=== PATIENT | female | born 1935 | race Caucasian/White ===

== ENCOUNTER 2017-04-21 11:25 | Inpatient (IN) | payer OTHER, MEDICARE ==
--- NOTE | 2017-04-21 11:45 | PDOC ---
History of Present Illness - General Chief Complaint: CVA/TIA Stated Complaint: EPISODE OF SLURRED SPEECH Time Seen by Provider: 04/21/17 11:35 - History of Present Illness Initial Comments: 04/21/17 11:40 Ms. Orr is a 81 yo female with a PMH of right femoral pseudoaneurysm w/ angioplasty/stent, afib, bradycardia, HTN who presents for a 1 hour history of slurred speech and Left facial droop. Erasmo: Ciprofloxacin, erythromycin Past History - Past Medical History Allergies/Adverse Reactions: Allergies Allergy/AdvReac Type Severity Reaction Status Date / Time ciprofloxacin [From Cipro] Allergy Rash Verified 02/21/16 14:58 ciprofloxacin HCl Allergy Rash Verified 02/21/16 14:58 [From Cipro] erythromycin base Allergy Rash Verified 02/21/16 14:58 Home Medications: Ambulatory Orders Enalapril Maleate [Vasotec -] 5 mg PO BID #0 tablet 03/03/16 Levothyroxine [Synthroid -] 25 mcg PO DAILY@0700 #0 tablet 03/03/16 Ascorbate Calcium [Vitamin C] 1 tab PO BID 06/19/16 Spironolactone 25 mg PO DAILY 06/19/16 Zinc Sulfate [Zinc-220] 1 cap PO DAILY 06/19/16 Ascorbic Acid [Vitamin C -] 1,000 mg PO DAILY 04/21/17 Clopidogrel Bisulfate [Clopidogrel] 75 mg PO DAILY 04/21/17 Rosuvastatin [Crestor -] 5 mg PO HS 04/21/17 Sodium Bicarbonate - 04/21/17 Anemia: No Asthma: No Cancer: Yes (Basal Cell Face) Cardiac Disorders: Yes (BRADYCARDIA) CVA: No COPD: No CHF: No Dementia: No Diabetes: No GI Disorders: No Disorders: No HTN: Yes Hypercholesterolemia: Yes Liver Disease: No Seizures: No Thyroid Disease: No - Surgical History Abdominal Surgery: No Appendectomy: No Cardiac Surgery: No Cholecystectomy: No Lung Surgery: No Neurologic Surgery: No Orthopedic Surgery: Yes (ORIF Left Arm) - Psycho/Social/Smoking Cessation Hx Suicidal Ideation: No Smoking History: Never smoked Have you smoked in the past 12 months: No Hx Alcohol Use: No Drug/Substance Use Hx: No Substance Use Type: None Hx Substance Use Treatment: No Review of Systems - Review of Systems Comments:: 04/21/17 11:45 GENERAL/CONSTITUTIONAL: No fever or chills. No weakness. HEAD, EYES, EARS, NOSE AND THROAT: No change in vision. No ear pain or discharge. No sore throat. CARDIOVASCULAR: No chest pain or shortness of breath RESPIRATORY: No cough, wheezing, or hemoptysis. GASTROINTESTINAL: No nausea, vomiting, diarrhea or constipation. GENITOURINARY: No dysuria, frequency, or change in urination. MUSCULOSKELETAL: No joint or muscle swelling or pain. No neck or back pain. SKIN: No rash NEUROLOGIC: +Reports she had left sided facial drooping that was worse initially as well as slurring of words. Reports both have gotten better but not yet fully improved. No headache, vertigo, loss of consciousness, or change in strength/sensation. ENDOCRINE: No increased thirst. No abnormal weight change HEMATOLOGIC/LYMPHATIC: No anemia, easy bleeding, or history of blood clots. ALLERGIC/IMMUNOLOGIC: No hives or skin allergy. 08/ *Physical Exam - Physical Exam Comments: 04/21/17 11:45 GENERAL: Awake, alert, and fully oriented, in no acute distress HEAD: No signs of trauma, normocephalic, atraumatic EYES: PERRLA, EOMI, sclera anicteric, conjunctiva clear ENT: Auricles normal inspection, hearing grossly normal, nares patent, oropharynx clear without exudates. Moist mucosa NECK: Normal ROM, supple, no lymphadenopathy, JVD, or masses LUNGS: No distress, speaks full sentences, clear to auscultation bilaterally HEART: Regular rate and rhythm, normal S1 and S2, no murmurs, rubs or gallops, peripheral pulses normal and equal bilaterally. ABDOMEN: Soft, nontender, normoactive bowel sounds. No guarding, no rebound. No masses EXTREMITIES: Normal inspection, Normal range of motion, no edema. No clubbing or cyanosis. NEUROLOGICAL: +NIHSS=2 for minor Left facial droop and slight slurring of nerves. Cranial nerves II through XII grossly intact. Normal gait, no focal sensorimotor deficits SKIN: Warm, Dry, normal turgor, no rashes or lesions noted. ED Treatment Course - LABORATORY CBC & Chemistry Diagram: 04/21/17 12:30 04/21/17 12:30 Medical Decision Making - Medical Decision Making 04/21/17 13:28 Patient presents with acute slurred speech and facial drooping that she says has already started improving. CT scan negative for bleed. EKG showed alternating bradycardia with atrial flutter. Labs unconcerning, after speaking with PCP (Delmis Peters) will admit to tele for TIA with neurology and cardiology following. 04/21/17 13:[address] Torres (neurology) to consult. 04/21/17 14:[address] Torres, he will f/u with patient in hospital. *DC/Admit/Observation/Transfer Diagnosis at time of Disposition: TIA (transient ischemic attack) Qualifiers: Transient cerebral ischemia type: unspecified Qualified Code(s): G45.9 - Transient cerebral ischemic attack, unspecified - Discharge Dispostion Condition at time of disposition: Fair - Attestations Physician Attestion: 04/21/17 14:41 I, Dr. Isauro Silva, attest that this document has been prepared under my direction and personally reviewed by me in its entirety. I further attest, that it accurately reflects all work, treatment, procedures and medical decision -making performed by me.
--- NOTE | 2017-04-21 11:58 | PDOC ---
Attending Attestation - Resident Resident Name: Isauro Silva - ED Attending Attestation I have performed the following: I have examined & evaluated the patient, The case was reviewed & discussed with the resident, I agree w/resident's findings & plan, Exceptions are as noted - HPI HPI: 04/21/17 11:56 Agree with the resident's HPI as documented in the electronic medical record. - Physicial Exam PE: 04/21/17 11:56 Agree with the resident's physical examination as documented in the electronic medical record. - Medical Decision Making 04/21/17 11:56 81-year-old female with history of hypertension, atrial fibrillation, peripheral artery disease, diabetes who presents the emergency department with one hour history of slurred speech and left-sided facial droop that his been resolving. Fingerstick is 130 in the emergency department and an NIHSS is 2. Differential diagnosis includes but is not limited to: TIA, CVA, electrolyte abnormality, toxic/metabolic derangement, dehydration. Plan: 1. CT head 2. EKG 3. Labs 4. Chest x-ray 5. Urine analysis 6. Will admit for TIAs/stroke workup 7. Neurology consult 8. Observe and reevaluate Addendum: EKG shows atrial flutter with a variable block; she appears to be rate controlled.
[2017-04-21 12:47] LABS: MCH 30.6 pg (25.7-33.7); MCHC 35.2 g/dl (32.0-36.0)
[2017-04-21 12:50] LABS: MEAN CELL VOLUME 86.9 fl (80-96); MEAN PLT VOLUME 8.7 fl (7.5-11.1); PLATELET COUNT 278 K/MM3 (134-434); RDW 13.2 % (11.6-15.6); WHITE BLOOD COUNT 8.4 K/mm3 (4.0-10.8)
[2017-04-21 13:06] LABS: ACTIVATED PTT 26.5 SECONDS (24.0-38.9)
[2017-04-21 13:10] LABS: ALBUMIN 4.3 g/dl (3.5-5.0); ALK PHOS 54 U/L (32-92); ANION GAP 7 (8-16); BILIRUBIN,TOTAL 0.5 mg/dl (0.2-1.0); CALCIUM 10.1 mg/dl (8.4-10.2); CO2 22 mmol/L (22-28); CPK 76 IU/L (26-192); CREATININE 1.6 mg/dl (0.6-1.3); GLUCOSE,RANDOM 98 mg/dl (74-106); MAGNESIUM 1.9 mg/dL (1.8-2.4); PHOSPHOROUS 4.2 mg/dl (2.5-4.6); SGOT/AST 22 U/L (10-42); SGPT/ALT 24 U/L (10-40)
[2017-04-21 13:11] LABS: INR 1.01 (0.82-1.09); PROTHROMBIN TIME (PATIENT) 11.3 SEC (10.2-13.0)
[2017-04-21] MEDS ORDERED: SODIUM POLYSTYRENE SULFONATE 15 GM/60 ML BOTTLE PO ONE (13:20)
[2017-04-21 13:23] LABS: TROPONIN I (DFP) < 0.03 ng/ml (0.03-0.50)
[2017-04-21] MEDS ORDERED: SODIUM POLYSTYRENE SULFONATE 15 GM/60 ML BOTTLE ONE (13:29)
[2017-04-21 16:00] VITALS: BMI 26.4
[2017-04-21] MEDS: amLODIPine BESYLATE 5 MG TABLET (FP) PO SCH (16:53)
[2017-04-21] MEDS: ENALAPRIL MALEATE 10 MG TABLET (FP) PO SCH (16:53)
[2017-04-21] MEDS ORDERED: ASPIRIN 81 MG CHEWABLE TABLETS ONE (16:56)
[2017-04-21] MEDS ORDERED: HEPARIN INFUSION - 500 ML IVPB ONE (17:15)
[2017-04-21] MEDS ORDERED: HEPARIN NA (PORCINE) 5,000 UNITS/ML 1ML VIAL ONE (17:19)
[2017-04-21] MEDS ORDERED: HEPARIN NA (PORCINE) 5,000 UNITS/ML 1ML VIAL IVPUSH PRN ×2 (17:46)
[2017-04-21] MEDS ORDERED: HEPARIN NA (PORCINE) 5,000 UNITS/ML 1ML VIAL IVPUSH ONE (17:46)
--- NOTE | 2017-04-21 17:50 | PN ---
Progress Note (short form) - Note Progress Note: Chief Complaint: Events noted, notes reviewed. Slurred speech with left facial drop, with paroxysmal atrial fibrillation, denies any chest pain or dyspnea History of Present Illness: Seen and examined in ER. Full consult dictated - Current Medication List Current Medications Amlodipine Besylate (Norvasc -) 5 mg PO DAILY [facility] Last Admin: 04/21/17 16:53 Dose: 5 mg Ascorbic Acid (Vitamin C -) 500 mg PO BID [facility] Aspirin (Ecotrin -) 81 mg PO DAILY [facility] Clopidogrel Bisulfate (Plavix -) 75 mg PO DAILY [facility] Enalapril Maleate (Vasotec -) 10 mg PO BID [facility] Last Admin: 04/21/17 16:53 Dose: 10 mg Levothyroxine Sodium (Synthroid -) 50 mcg PO DAILY@0700 [facility] Rosuvastatin Calcium (Crestor -) 10 mg PO HS [facility] Sodium Bicarbonate (Sodium Bicarbonate -) 650 mg PO BID [facility] Spironolactone (Aldactone -) 25 mg PO DAILY [facility] Zinc Sulfate (Orazinc -) 220 mg PO DAILY [facility] Home Medications Medication Instructions Recorded Ascorbate Calcium [Vitamin C] 1 tab PO BID 06/19/16 Spironolactone 25 mg PO DAILY 06/19/16 Clopidogrel Bisulfate [Clopidogrel] 75 mg PO DAILY 04/21/17 Enalapril Maleate [Vasotec -] 5 mg PO DAILY 04/21/17 Levothyroxine [Synthroid -] 0.05 mg PO DAILY@0700 04/21/17 Rosuvastatin [Crestor -] 5 mg PO HS 04/21/17 Sodium Bicarbonate - 650 mg PO BID 04/21/17 Zinc 50 mg PO DAILY 04/21/17 Review of Systems Cardiovascular: As noted above Respiratory: denies: Cough or Sputum Production Gastrointestinal: denies: Nausea, Vomiting, Constipation or Abdominal Discomfort Musculoskeletal: No Symptoms Reported Endocrine: No Symptoms Reported - Objective Vital Signs: Last Vital Signs Temp Pulse Resp BP Pulse Ox 97.7 F 56 L 16 185/89 100 04/21/17 14:40 04/21/17 17:10 04/21/17 17:10 04/21/17 17:10 04/21/17 14:40 Intake & Output 04/18/17 04/19/17 04/20/17 04/21/17 23:59 23:59 23:59 23:59 Weight 144 lb 3 oz Neck: Supple Positive JVD No Bruit Cardiovascular: S1 S2 Regualr Rate Rhythm No Murmurs Appreciated Respiratory: Clear to A&P Bilaterally Gastrointestinal: Soft Benign Normal Bowel Sounds Ext: No Edema Labs: CBC, BMP 04/21/17 12:30 04/21/17 12:30 Troponin, BNP 04/21/17 12:30 Troponin I < 0.03 L Hepatic Panel Total Bilirubin 0.5 mg/dl (0.2-1.0) 04/21/17 12:30 AST 22 U/L (10-42) 04/21/17 12:30 ALT 24 U/L (10-40) D 04/21/17 12:30 Alkaline Phosphatase 54 U/L (32-92) 04/21/17 12:30 Albumin 4.3 g/dl (3.5-5.0) 04/21/17 12:30 Assessment/Plan ASSESSMENT: 1. Clinical presentation is consistent with CVA/TIA with residual facial drop 2. Paroxysmal atrial Flutter/fibrillation currently in sinus rhythm, [id number] score of 7 on no A/C, sinus bradycardia, sinus node dysfunction to be excluded 3. 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 Chronic diastolic LV dysfunction with class 0-I NYHA classification LV failure 5. HTN, hypertensive cardiovascular disease not at goal 6. Hypercholesterolemia 7. CKD with Hyperkalemia PLAN: 1. Ideally should be on B-Blockers limiting factor is Bradycardia 2. Continue Vasotec with caution considering the above noted CKD with Hyperkalemia 3. Addition of Norvasc 4. Continue Crestor 5. Continue Plavix for now and fpc A/C is recommended with Coumadin or NOAC's considering the above noted [id number] score of 7, initiate Heparin 6. D/C Aldactone related to the above noted Hyperkalemia 7. Holter monitor 8. Carotid Doppler study 9. Brain MRI/MRA 10. Echocardiography for evaluation of LV size and function, LA size and valvular function 11. Recommend transfer to Telemetry at [facility] for further observation and management Condition Nenita Manzano M.D.
[2017-04-21] MEDS: ASPIRIN COATED 81 MG TABLET.EC PO SCH (18:15)
[2017-04-21] MEDS: HEPARIN INFUSION - 500 ML IVPB SCH (18:15)
[2017-04-21] MEDS: ROSUVASTATIN CA 10 MG TABLET (FP) PO SCH (21:40)
[2017-04-21] MEDS: SODIUM BICARBONATE 650 MG TABLET PO SCH (21:40)
[2017-04-21] MEDS: ASCORBIC ACID 500 MG TABLET (FP) PO SCH (21:48)
[2017-04-22] MEDS: HEPARIN INFUSION - 500 ML IVPB SCH ×2 (02:35→18:22)
[2017-04-22] MEDS: LEVOTHYROXINE NA 50 MCG TABLET (FP) PO SCH (06:16)
--- NOTE | 2017-04-22 07:32 | PN ---
Progress Note (short form) - Note Progress Note: Chief Complaint: Events noted, notes reviewed. Left facial drop persists but improved, currently in sinus rhythm, sinus bradycardia, paroxysmal atrial fibrillation/flutter, denies any chest pain or dyspnea History of Present Illness: Seen and examined in ER. Events noted, notes reviewed. Left facial drop persists but improved, currently in sinus rhythm, sinus bradycardia, paroxysmal atrial fibrillation/flutter, denies any chest pain or dyspnea Patient prefers initiation of Coumadin as opposed to NOAC's, risk, benefits and alternatives were reviewed - Current Medication List Current Medications Amlodipine Besylate (Norvasc -) 5 mg PO DAILY [facility] Last Admin: 04/21/17 16:53 Dose: 5 mg Ascorbic Acid (Vitamin C -) 500 mg PO BID [facility] Last Admin: 04/21/17 21:48 Dose: Not Given Aspirin (Ecotrin -) 81 mg PO DAILY [facility] Last Admin: 04/21/17 18:15 Dose: 81 mg Clopidogrel Bisulfate (Plavix -) 75 mg PO DAILY [facility] Enalapril Maleate (Vasotec -) 10 mg PO BID [facility] Last Admin: 04/21/17 16:53 Dose: 10 mg Heparin Sodium (Porcine) (Heparin -) 5,000 unit IVPUSH PRN PRN Heparin Sodium (Porcine) (Heparin -) 1,000 unit IVPUSH PRN PRN Heparin Sodium/Dextrose (Heparin Infusion -) 500 mls @ 16 mls/hr IVPB TITR [facility] ; 800 UNITS/HR PRN Reason: Protocol Last Admin: 04/22/17 02:35 Dose: 13 mls/hr Levothyroxine Sodium (Synthroid -) 50 mcg PO DAILY@0700 [facility] Last Admin: 04/22/17 06:16 Dose: 50 mcg Rosuvastatin Calcium (Crestor -) 10 mg PO HS [facility] Last Admin: 04/21/17 21:40 Dose: 10 mg Sodium Bicarbonate (Sodium Bicarbonate -) 650 mg PO BID [facility] Last Admin: 04/21/17 21:40 Dose: 650 mg Zinc Sulfate (Orazinc -) 220 mg PO DAILY [facility] Review of Systems Cardiovascular: As noted above Respiratory: denies: Cough or Sputum Production Gastrointestinal: denies: Nausea, Vomiting, Constipation or Abdominal Discomfort Musculoskeletal: No Symptoms Reported Endocrine: No Symptoms Reported - Objective Vital Signs: Last Vital Signs Temp Pulse Resp BP Pulse Ox 98.1 F 48 L 20 150/55 96 04/22/17 06:00 04/22/17 06:00 04/22/17 06:00 04/22/17 06:00 04/21/17 20:00 Intake & Output 04/19/17 04/20/17 04/21/17 04/22/17 23:59 23:59 23:59 23:59 Intake Total 480 83 Output Total 200 Balance 280 83 Weight 144 lb 3 oz Neck: Supple Negative JVD No Bruit Cardiovascular: S1 S2 Regular Rate Rhythm No Murmurs Appreciated Respiratory: Clear to A&P Bilaterally Gastrointestinal: Soft Benign Normal Bowel Sounds Ext: No Edema Labs: Blood test from this AM pending Assessment/Plan ASSESSMENT: 1. Clinical presentation is consistent with CVA/TIA with residual facial drop, improving 2. Paroxysmal atrial Flutter/fibrillation currently in sinus rhythm, [id number] score of 7 on Heparin, sinus bradycardia, sinus node dysfunction to be excluded 3. 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 Chronic diastolic LV dysfunction with class 0-I NYHA classification LV failure 5. HTN, hypertensive cardiovascular disease 6. Hypercholesterolemia 7. CKD with Hyperkalemia, resolved Hyperkalemia PLAN: 1. As outlined ideally should be on B-Blockers limiting factor is Bradycardia 2. Continue Vasotec with caution considering the above noted CKD with Hyperkalemia 3. Continue Norvasc 4. Continue Crestor 5. Continue Plavix for now and electrician sound A/C is recommended with Coumadin ( patient preference) considering the above noted [id number] score of 7, continue Heparin 6. Holter monitor 7. Carotid Doppler study 8. Brain MRI/MRA 9. Echocardiography for evaluation of LV size and function, LA size and valvular function Jam Manzano M.D.
[2017-04-22 09:14] LABS: ANION GAP 10 (8-16); CALCIUM 8.9 mg/dL (8.5-10.1); CO2 23 mmol/L (21-32); GLUCOSE,RANDOM 93 mg/dL (74-106)
[2017-04-22 09:15] LABS: CREATININE 1.8 mg/dL (0.55-1.02)
[2017-04-22 09:19] LABS: BASOPHIL 0.6 % (0-2.0); EOSINOPHIL 3.1 % (0-4.5); MCH 30.7 pg (25.7-33.7); MCHC 33.2 g/dl (32.0-36.0); MEAN CELL VOLUME 92.4 fl (80-96); MEAN PLT VOLUME 9.8 fl (7.5-11.1); NEUTROPHILS 49.4 % (42.8-82.8); PLATELET COUNT 224 K/MM3 (134-434); RDW 13.6 % (11.6-15.6); WHITE BLOOD COUNT 8.6 K/mm3 (4.0-10.0)
[2017-04-22] MEDS ORDERED: CLOPIDOGREL BISULFATE 75 MG TABLET (FP) PO SCH (10:00)
[2017-04-22] MEDS ORDERED: SPIRONOLACTONE 25 MG TABLET (FP) PO SCH (10:00)
[2017-04-22] MEDS ORDERED: ASPIRIN COATED 81 MG TABLET.EC PO SCH (10:00)
[2017-04-22] MEDS ORDERED: PT OWN MED DRAWER 7, Y5N ONE ×2 (10:38→18:55)
[2017-04-22] MEDS: ZINC SULFATE 220 MG CAPSULE (FP) PO SCH (11:01)
[2017-04-22] MEDS: amLODIPine BESYLATE 5 MG TABLET (FP) PO SCH (11:02)
[2017-04-22] MEDS: SODIUM BICARBONATE 650 MG TABLET PO SCH ×2 (11:02→21:19)
[2017-04-22] MEDS: ASPIRIN COATED 81 MG TABLET.EC PO SCH (11:02)
[2017-04-22] MEDS: ASCORBIC ACID 500 MG TABLET (FP) PO SCH ×2 (11:03→21:19)
[2017-04-22] MEDS: ENALAPRIL MALEATE 10 MG TABLET (FP) PO SCH (11:03)
--- NOTE | 2017-04-22 12:11 | CONSULT ---
Admitting History and Physical - Primary Care Physician PCP: Perez Prakash - Admission History of Present Illness: Slurred speech with left facial drop, with paroxysmal atrial fibrillation. 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)) - Smoking History Smoking history: Never smoked Have you smoked in the past 12 months: No - Alcohol/Substance Use Hx Alcohol Use: No History - Admission Reason For Visit: TIA - Diagnostics X-ray: Report Reviewed CT Scan: Report Reviewed - General Mental Status: Alert and Oriented, Awake and Alert, Able to Follow Commands Attention: Intact Ability to Follow Directions: Excellent Head/Neck Control: WFL - Hearing Hearing: Normal Hearing Aide: No With Patient: No Speech Evaluation - Communication Primary Language: GRENADIAN Communication: Yes: Dysarthria Oral Expression Ability: Yes: Mild Impairment - Speech Production Able to Make Needs Known: Yes: WNL Intelligibility: Yes: Mildly Impaired - Speech Characteristics Voice Loudness: Normal Voice Pitch: Yes: Normal Voice Phonatory-based Quality: Yes: Normal Speech Clarity: < 75% Nasal Resonance: Normal Articulation: Yes: Imprecise Rate of Speech: Intact - Language/Auditory Comprehension Follows: Yes: 2 Stage Simple Commands Observation: Able to respond to yes/no queries: Yes, Yes/No Confusion: No, Comprehends Conversational Speech: Yes - Language/Verbal Expression Able to Respond to Simple Queries: Yes: WNL Able to Communicate Wants and Needs: Yes: WNL Functional Communication Status: Yes: WNL - Memory/Perception termination clerk Memory: Yes: WNL Short Term Memory: Yes: WNL - Swallow Evaluation/Bedside Assessment Current Nutritional Intake: Regular, Thin Liquids Oral Secretions: Yes: WFL Dentition: Yes: Adequate Facial Symmetry at Rest: Facial Droop Left Facial Symmetry on Retraction: Facial Droop Left Jaw Position: Closed at Rest Pucker Lips: Droops Left Lingual Movement: Normal, Symmetric Lingual Speed of Movement: Normal Lingual Movement Strgth Against Opposition: Normal Lingual Movement Characteristics: Normal Velopharyngeal Movement: Normal Laryngeal Elevation: WFL Laryngeal Movement: Able to Palpate Rate of Intake: WFL Bolus Size: WFL Labial Seal: Impaired Left Chewing: WFL Oral Prep Time: WFL A-P Transit: WFL Pocketing: None Timing of Swallow: WFL Coughing/Throat Clear: No Change in Voice: No Recommendations - Speech Evaluation, Impression/Plan Impression: 81 yo pt with clinical presentation is consistent with CVA/TIA with residual facial droop. Swallowing/Cognition/language function intact. Tongue symmetric. Mild to moderate Left facial weakness at rest with mildly reduced retraction/pursing. Recommended Therapies: Other (Educated pt on Oral-motor/neuromuscular facilitation techniques and hand outs provided.) - Dysphagia Impressions/Plan Swallowing Skills: WFL Dysphagia Impressions: No Impairment *Silent aspiration: cannot be R/O at bedside Recommendations: Other (Self practice of Oral-motor/neuromuscular facilitation techniques. If facial assymetry persists, out pt tx.) - Recommendations Diet Consistency: Regular Medication Administration: Whole with water Liquids: Thin Liquids
--- NOTE | 2017-04-22 13:17 | HP ---
Admitting History and Physical - Primary Care Physician PCP: Delmis Lopez - Admission History of Present Illness: Ms. Orr is a 81 yo female with a PMH of right femoral pseudoaneurysm w/ angioplasty/stent, afib, bradycardia, HTN who presented for a 1 hour history of slurred speech and Left facial droop. clinical exam consistent with cva-- started on heparin and pt [facility]. case was discussed with er physician. pt was not given tpa as she had improved pt seen/ examined today in tele chart reviewed feels better denies cp/ sob/ abd pain. 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)) - Smoking History Smoking history: Never smoked Have you smoked in the past 12 months: No - Alcohol/Substance Use Hx Alcohol Use: No Home Medications - Allergies Allergies/Adverse Reactions: Allergies Allergy/AdvReac Type Severity Reaction Status Date / Time ciprofloxacin [From Cipro] Allergy Rash Verified 02/21/16 14:58 ciprofloxacin HCl Allergy Rash Verified 02/21/16 14:58 [From Cipro] erythromycin base Allergy Rash Verified 02/21/16 14:58 - Home Medications Home Medications: Ambulatory Orders Ascorbate Calcium [Vitamin C] 1 tab PO BID 06/19/16 Spironolactone 25 mg PO DAILY 06/19/16 Clopidogrel Bisulfate [Clopidogrel] 75 mg PO DAILY 04/21/17 Enalapril Maleate [Vasotec -] 5 mg PO DAILY 04/21/17 Levothyroxine [Synthroid -] 0.05 mg PO DAILY@0700 04/21/17 Rosuvastatin [Crestor -] 5 mg PO HS 04/21/17 Sodium Bicarbonate - 650 mg PO BID 04/21/17 Zinc 50 mg PO DAILY 04/21/17 Family Disease History - Family Disease History Family Disease History: Other: Daughter (Glucocorticoid remediable Hyperaldosteronism) Review of Systems Unable to obtain ROS, reason: see [place] Physical Examination Vital Signs: Vital Signs Temperature 98.4 F 04/22/17 13:11 Pulse Rate 62 04/22/17 13:11 Respiratory Rate 20 04/22/17 13:11 Blood Pressure 159/68 04/22/17 13:11 O2 Sat by Pulse Oximetry (%) 96 04/21/17 20:00 Constitutional: Yes: No Distress, Calm Eyes: Yes: Conjunctiva Clear, PERRL HENT: Yes: WNL Neck: Yes: Supple, Trachea Midline Cardiovascular: Yes: Pulse Irregular Respiratory: Yes: CTA Bilaterally Gastrointestinal: Yes: Normal Bowel Sounds, Soft Edema: No Neurological: Yes: Alert, Facial Droop, Other (slurred speech) Psychiatric: Yes: Alert Labs: CBC, BMP 04/22/17 06:00 04/22/17 06:00 Imaging - Results Chest X-ray: Report Reviewed Cat Scan: Report Reviewed Other: Other (echo - reviewed--) Problem List - Problems (1) Acute CVA (cerebrovascular accident) Code(s): I63.9 - CEREBRAL INFARCTION, UNSPECIFIED (2) Atrial fibrillation Code(s): I48.91 - UNSPECIFIED ATRIAL FIBRILLATION Qualifiers: Atrial fibrillation type: paroxysmal Qualified Code(s): I48.0 - Paroxysmal atrial fibrillation (3) Bradycardia Code(s): R00.1 - BRADYCARDIA, UNSPECIFIED (4) Chronic kidney disease (CKD) Code(s): N18.9 - CHRONIC KIDNEY DISEASE, UNSPECIFIED Qualifiers: Chronic kidney disease stage: stage 2 (mild) Qualified Code(s): N18.2 - Chronic kidney disease, stage 2 (mild) (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 d/c plavix/ asa start on coumadin pt swallow eval check lipid profile discussed with Dr. Torres nepho consult d/c vasotec for now will follow
--- NOTE | 2017-04-22 13:54 | CONSULT ---
Consult - text type - Consultation Consultation Note: NEUROLOGY CONSULTATION is greatly appreciated: This 81 yo RH woman with h/o HTN, Chol, hypothyroidism and PVD is s/p Left femoral angioplasty last year complicated by Right Femoral pseudoaneurysm. She recalls AFib was first discovered at that time but resolved. Maintained on enalapril, L-thyroxin, clopidogrel, spironolactone and crestor. Seen by me in the past for evaluation of tremor with extrapyramidal features. She was seen last night in the [facility] ED after the onset of left facial drooping and slurred speech. VS indicated systolic hypertension CT of head (reviewed): Two clear right internal capsule lacunar infarcts. internal control manager: Bradycardia alternating with AFib. VIRGINIE: No bruits. Cor: Irreg NEURO: MS: Normal Speech: Slightly dysarthric. CN: Mild left facial droop. Full downey and EOM's. Slightly reduced tongue PAULINA's. Gag OK Motor: Min rest tremor (4-5 cps). Mild left drift. Minimal cogwheel rigidity. Decreased PAULINA's on left. Normal reflexes. Toes downgoing. Coord: Min Left FTN dystaxia Sensory: Normal Gait: normal IMP: Mild right cerebral dysfunction c/w lacunar CVA Mild extrapyramidal features without significant progression over> 5 yrs. SUGGEST: MRI of brain (C-) Carotid duplex dopplers. Although the proximate cause of this microvascular event is likely systolic HTN, she is clearly a candidate for senior care anticoagulation for paroxysmal AFib (D/C plavix). Increase BP meds. Cardiac eval as per Dr. Manzano. Thank you very much, Kasi Torres MD
[2017-04-22] MEDS ORDERED: WARFARIN NA 2.5 MG TABLET (FP) PO ONE (18:00)
[2017-04-22] MEDS: WARFARIN PROTOCOL PO SCH (18:22)
--- NOTE | 2017-04-22 19:18 | EKG ---
Test Reason : Blood Pressure : / mmHG Vent. Rate : 106 BPM Atrial Rate : 300 BPM P-R Int : 000 ms QRS Dur : 080 ms QT Int : 340 ms P-R-T Axes : 111 -19 269 degrees QTc Int : 451 ms Atrial fibrillation LEFT VENTRICULAR HYPERTROPHY NONSPECIFIC ST AND T WAVE ABNORMALITY ABNORMAL ECG WHEN COMPARED WITH ECG OF 24-FEB-2016 05:41, ST NO LONGER DEPRESSED IN LATERAL LEADS T WAVE INVERSION NO LONGER EVIDENT IN LATERAL LEADS Confirmed by GUSTAVO DOWNS MD ([id number]) on 04/22/2017 7:17:56 PM Referred By: JENNIFFER DERAS Confirmed By:GUSTAVO DOWNS MD
[2017-04-22] MEDS: ROSUVASTATIN CA 10 MG TABLET (FP) PO SCH (21:19)
[2017-04-23] MEDS: LEVOTHYROXINE NA 50 MCG TABLET (FP) PO SCH (06:01)
[2017-04-23 08:10] LABS: BASOPHIL 1.5 % (0-2.0); EOSINOPHIL 3.4 % (0-4.5); MCH 30.7 pg (25.7-33.7); MCHC 33.5 g/dl (32.0-36.0); MEAN CELL VOLUME 91.9 fl (80-96); MEAN PLT VOLUME 9.5 fl (7.5-11.1); PLATELET COUNT 229 K/MM3 (134-434); RDW 13.7 % (11.6-15.6); WHITE BLOOD COUNT 9.5 K/mm3 (4.0-10.0)
[2017-04-23 08:22] LABS: INR 1.02 (0.82-1.09); PROTHROMBIN TIME (PATIENT) 11.2 SEC (9.98-11.88)
[2017-04-23 09:00] LABS: ALBUMIN 4.1 g/dl (3.4-5.0); ANION GAP 10 (8-16); BILIRUBIN,TOTAL 0.5 mg/dL (0.2-1.0); CALCIUM 8.5 mg/dL (8.5-10.1); CHOLESTEROL 139 mg/dL (50-200); CO2 23 mmol/L (21-32); CREATININE 1.5 mg/dL (0.55-1.02); GLUCOSE,RANDOM 95 mg/dL (74-106); LDL CHOLESTEROL (ONLY SJRH) 62 mg/dL (5-100); SGOT/AST 22 U/L (15-37); SGPT/ALT 29 U/L (12-78); TOT PROT 7.2 g/dl (6.4-8.2)
[2017-04-23 09:01] LABS: ALK PHOS 67 U/L (45-117)
--- NOTE | 2017-04-23 09:26 | PN ---
Progress Note (short form) - Note Progress Note: Chief Complaint: Events noted, notes reviewed. Left facial drop persists but improved, denies any chest pain or dyspnea, currently in sinus rhythm, sinus bradycardia History of Present Illness: Seen and examined on telemetry. Events noted, notes reviewed. Left facial drop persists but improved, denies any chest pain or dyspnea, currently in sinus rhythm, sinus bradycardia Initiated on Coumadin as per protocol as opposed to NOAC's, patient preference Echocardiography report noted, normal LV size and function with mild to moderate MR and TR and Bi-atrial dilatation MRI results noted, carotid Doppler study cancelled - Current Medication List Current Medications Amlodipine Besylate (Norvasc -) 5 mg PO DAILY [facility] Last Admin: 04/22/17 11:02 Dose: 5 mg Ascorbic Acid (Vitamin C -) 500 mg PO BID [facility] Last Admin: 04/22/17 21:19 Dose: 500 mg Heparin Sodium (Porcine) (Heparin -) 5,000 unit IVPUSH PRN PRN Heparin Sodium (Porcine) (Heparin -) 1,000 unit IVPUSH PRN PRN Heparin Sodium/Dextrose (Heparin Infusion -) 500 mls @ 16 mls/hr IVPB TITR ELLIE ; 800 UNITS/HR PRN Reason: Protocol Last Admin: 04/22/17 18:22 Dose: Not Given Levothyroxine Sodium (Synthroid -) 50 mcg PO DAILY@0700 [facility] Last Admin: 04/23/17 06:01 Dose: 50 mcg Rosuvastatin Calcium (Crestor -) 10 mg PO HS [facility] Last Admin: 04/22/17 21:19 Dose: 10 mg Sodium Bicarbonate (Sodium Bicarbonate -) 650 mg PO BID [facility] Last Admin: 04/22/17 21:19 Dose: 650 mg Warfarin Sodium (Coumadin Protocol) 1 each PO 1800 [facility] PRN Reason: Protocol Last Admin: 04/22/17 18:22 Dose: Not Given Zinc Sulfate (Orazinc -) 220 mg PO DAILY [facility] Last Admin: 04/22/17 11:01 Dose: 220 mg Review of Systems Cardiovascular: As noted above Respiratory: denies: Cough or Sputum Production Gastrointestinal: denies: Nausea, Vomiting, Constipation or Abdominal Discomfort Musculoskeletal: No Symptoms Reported Endocrine: No Symptoms Reported - Objective Vital Signs: Last Vital Signs Temp Pulse Resp BP Pulse Ox 97.9 F 53 L 18 157/79 98 04/23/17 06:00 04/23/17 06:00 04/23/17 06:00 04/23/17 06:00 04/22/17 20:48 Intake & Output 04/20/17 04/21/17 04/22/17 04/23/17 23:59 23:59 23:59 23:59 Intake Total 480 143 84 Output Total 200 Balance 280 143 84 Weight 144 lb 3 oz Neck: Supple Negative JVD No Bruit Cardiovascular: S1 S2 Regular Rate Rhythm No Murmurs Appreciated Respiratory: Clear to A&P Bilaterally Gastrointestinal: Soft Benign Normal Bowel Sounds Ext: No Edema Labs: CBC, BMP 04/23/17 07:00 04/23/17 07:00 Assessment/Plan ASSESSMENT: 1. Clinical presentation is consistent with CVA/TIA with residual facial drop 2. Paroxysmal atrial Flutter/fibrillation currently in sinus rhythm, [id number] score of 7 on Heparin initiated on Coumadin, sinus bradycardia, sinus node dysfunction to be excluded 3. 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 Chronic diastolic LV dysfunction with class 0-I NYHA classification LV failure, compensated/euvolemic 5. HTN, hypertensive cardiovascular disease 6. Hypercholesterolemia 7. CKD with Hyperkalemia, resolved Hyperkalemia PLAN: 1. As outlined ideally should be on B-Blockers limiting factor is Bradycardia 2. Vasotec D/C recommend resumption once renal function at baseline 3. Continue Norvasc 4. Continue Crestor 5. Continue Heparin and Coumadin as per protocol (patient preference) considering the above noted [id number] score of 7 6. Await Holter monitor Jam Manzano M.D.
[2017-04-23] MEDS ORDERED: PT OWN MED DRAWER 7, Y5N ONE (09:55)
[2017-04-23] MEDS: SODIUM BICARBONATE 650 MG TABLET PO SCH ×2 (10:10→21:55)
[2017-04-23] MEDS: ASCORBIC ACID 500 MG TABLET (FP) PO SCH ×2 (10:10→21:55)
[2017-04-23] MEDS: amLODIPine BESYLATE 5 MG TABLET (FP) PO SCH (10:10)
[2017-04-23] MEDS: ZINC SULFATE 220 MG CAPSULE (FP) PO SCH (10:10)
--- NOTE | 2017-04-23 11:33 | CON.NEP ---
Consult Consult Specialty:: Nephrology ([facility]orky/Darrell) Referred by:: Dr. Prakash Reason for Consultation:: KEYUR/CKD - History of Present Illness Chief Complaint: Slurred Speech History of Present Illness: This is a 81 year old woman with PMhx of CKD (baseline Cr 1.5), Glucocorticoid- remediable aldosteronism, Hypertension who presented with complaints of slurred speech and found to have an acute CVA with BUN/Cr of 44/1.6 and K of 5.6. - History Source History Provided By: Patient Limitations to Obtaining History: No Limitations - Past Medical History Cardio/Vascular: Yes: AFIB, HTN, Other (Chronic Bradycardia, PVD) Renal/: Yes: Renal Inusuff Musculoskeletal: Yes: Osteoarthritis Endocrine: Yes: Other (Glucocorticoid Remediable Aldosteronism (GRA)) Additional Medical History: Glucocorticoid Remediable Aldosteronism (GRA) - Alcohol/Substance Use Hx Alcohol Use: No - Smoking History Smoking history: Never smoked Have you smoked in the past 12 months: No Home Medications - Allergies Allergies/Adverse Reactions: Allergies Allergy/AdvReac Type Severity Reaction Status Date / Time ciprofloxacin [From Cipro] Allergy Rash Verified 02/21/16 14:58 ciprofloxacin HCl Allergy Rash Verified 02/21/16 14:58 [From Cipro] erythromycin base Allergy Rash Verified 02/21/16 14:58 - Home Medications Home Medications: Ambulatory Orders Ascorbate Calcium [Vitamin C] 1 tab PO BID 06/19/16 Spironolactone 25 mg PO DAILY 06/19/16 Clopidogrel Bisulfate [Clopidogrel] 75 mg PO DAILY 04/21/17 Enalapril Maleate [Vasotec -] 5 mg PO DAILY 04/21/17 Levothyroxine [Synthroid -] 0.05 mg PO DAILY@0700 04/21/17 Rosuvastatin [Crestor -] 5 mg PO HS 04/21/17 Sodium Bicarbonate - 650 mg PO BID 04/21/17 Zinc 50 mg PO DAILY 04/21/17 Family Disease History - Family Disease History Family Disease History: Other: Daughter (Glucocorticoid remediable Hyperaldosteronism) Review of Systems - Review of Systems Constitutional: reports: No Symptoms Eyes: reports: No Symptoms HENT: reports: No Symptoms Neck: reports: No Symptoms Cardiovascular: reports: No Symptoms Respiratory: reports: No Symptoms Gastrointestinal: reports: No Symptoms Genitourinary: reports: No Symptoms Musculoskeletal: reports: No Symptoms Neurological: reports: Change in Speech Endocrine: reports: No Symptoms Hematology/Lymphatic: reports: No Symptoms Nephrology Consult - Height Height: 5 ft 2 in - Weight Weight: 144 lb 3 oz - BMI Body Mass Index (BMI): 26.4 - Lab Results CBC,BMP: CBC, BMP 04/23/17 07:00 04/23/17 07:00 Anion Gap: Anion Gap Anion Gap 10 (8-16) 04/23/17 07:00 - Imaging Chest X-ray: Report Reviewed MRI: Report Reviewed - Physical Examination Vital Signs: Vital Signs Temperature 97.9 F 04/23/17 06:00 Pulse Rate 53 L 04/23/17 06:00 Respiratory Rate 18 04/23/17 06:00 Blood Pressure 157/79 04/23/17 06:00 O2 Sat by Pulse Oximetry (%) 98 04/22/17 20:48 Constitutional: Yes: Well Nourished, No Distress, Calm Eyes: Yes: Conjunctiva Clear HENT: Yes: Atraumatic, Normocephalic Neck: Yes: Supple Cardiovascular: Yes: Regular Rate and Rhythm, S1, S2. No: JVD, Murmur, Rub Respiratory: Yes: Regular, CTA Bilaterally. No: Rales, Rhonchi, Wheezes Gastrointestinal: Yes: Normal Bowel Sounds, Soft. No: Tenderness Renal/: No: Bladder Distention Extremities: No: Cold, Cool, Cyanosis Edema: No Neurological: Yes: Alert, Oriented, Facial Droop Problem List - Problems (1) Acute CVA (cerebrovascular accident) Code(s): I63.9 - CEREBRAL INFARCTION, UNSPECIFIED (2) Acute renal failure Code(s): N17.9 - ACUTE KIDNEY FAILURE, UNSPECIFIED Qualifiers: Acute renal failure type: unspecified Qualified Code(s): N17.9 - Acute kidney failure, unspecified (3) Chronic kidney disease (CKD) Code(s): N18.9 - CHRONIC KIDNEY DISEASE, UNSPECIFIED Qualifiers: Chronic kidney disease stage: stage 2 (mild) Qualified Code(s): N18.2 - Chronic kidney disease, stage 2 (mild) (4) Glucocorticoid-remediable aldosteronism Code(s): 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 Assessment/Plan 81 year old woman with PMhx of CKD (baseline Cr 1.5), Glucocorticoid-remediable aldosteronism, Hypertension who presented with complaints of slurred speech and found to have an acute CVA with BUN/Cr of 44/1.6 and K of 5.6 #Hyperkalemia in setting of CKD/Mild volume depletion and Aldactone use Last Cr in the office was 1.34 inpatient Cr not significantly changed from baseline off Aldactone b/c of hyperkalemia can given trial of gentle IVF low potassium diet Trend BUN/cr and electrolytes #Glucocorticoid-remedialble aldosteronism/Hypertension off aldactones that mitigates effect of high aldosterone state pt has not been treated with steroids (usually suppresses ACTH stimulation which leads to excessive aldosterone release) if K is improved and Renal function stable should be started back on aldactone in AM #Acute CVA on Heparin gtt A/c as per neurology and primary Thank you Will follow Juan J Ramírez DO
[2017-04-23] MEDS ORDERED: SODIUM CHLORIDE 0.45% 1,000 ML IV SCH (11:45)
--- NOTE | 2017-04-23 13:00 | PN ---
Progress Note, OPERATIONAL METEOROLOGIST - Note Progress Note: Facial weakness much improved. Pt performing neuromuscular facilitation technique and oral motor exercises well, independently. Tolerating diet with out difficulty. Speech more precise. Selected Entries 04/22/17 04/22/17 04/22/17 01:52 06:00 10:00 Breakfast Diet Tolerated Lunch Supper Temperature 97.6 F 98.1 F 97.8 F 04/22/17 04/22/17 04/22/17 13:11 18:00 21:00 Breakfast 75% Diet Tolerated Lunch 75% Supper 100% Temperature 98.4 F 98.7 F 98.2 F 04/23/17 04/23/17 04/23/17 02:54 06:00 10:36 Breakfast 100% Diet Tolerated Well Lunch Supper Temperature 98.4 F 97.9 F
--- NOTE | 2017-04-23 15:17 | PN ---
Progress Note, Physician Chief Complaint: no complaints - Current Medication List Current Medications: Active Medications Amlodipine Besylate (Norvasc -) 5 mg PO DAILY [facility] Last Admin: 04/23/17 10:10 Dose: 5 mg Ascorbic Acid (Vitamin C -) 500 mg PO BID [facility] Last Admin: 04/23/17 10:10 Dose: 500 mg Heparin Sodium (Porcine) (Heparin -) 5,000 unit IVPUSH PRN PRN Heparin Sodium (Porcine) (Heparin -) 1,000 unit IVPUSH PRN PRN Heparin Sodium/Dextrose (Heparin Infusion -) 500 mls @ 16 mls/hr IVPB TITR ELLIE ; 800 UNITS/HR PRN Reason: Protocol Last Admin: 04/22/17 18:22 Dose: Not Given Sodium Chloride (1/2 Normal Saline) 1,000 mls @ 50 mls/hr IV ASDIR [facility] Stop: 04/24/17 11:37 Last Admin: 04/23/17 13:32 Dose: 50 mls/hr Levothyroxine Sodium (Synthroid -) 50 mcg PO DAILY@0700 [facility] Last Admin: 04/23/17 06:01 Dose: 50 mcg Rosuvastatin Calcium (Crestor -) 10 mg PO HS [facility] Last Admin: 04/22/17 21:19 Dose: 10 mg Sodium Bicarbonate (Sodium Bicarbonate -) 650 mg PO BID [facility] Last Admin: 04/23/17 10:10 Dose: 650 mg Warfarin Sodium (Coumadin Protocol) 1 each PO 1800 [facility] PRN Reason: Protocol Last Admin: 04/22/17 18:22 Dose: Not Given Warfarin Sodium (Coumadin -) 2.5 mg PO ONCE@1800 [facility] Stop: 04/23/17 18:01 Warfarin Sodium (Coumadin -) 2.5 mg PO ONCE@1800 [facility] Stop: 04/23/17 18:01 Zinc Sulfate (Orazinc -) 220 mg PO DAILY [facility] Last Admin: 04/23/17 10:10 Dose: 220 mg - Objective Vital Signs: Vital Signs Temperature 97.8 F 04/23/17 14:44 Pulse Rate 54 L 04/23/17 14:44 Respiratory Rate 16 04/23/17 14:44 Blood Pressure 154/86 04/23/17 14:44 O2 Sat by Pulse Oximetry (%) 98 04/23/17 10:00 Constitutional: Yes: No Distress, Other (left facial droop) Cardiovascular: Yes: Pulse Irregular Respiratory: Yes: CTA Bilaterally Gastrointestinal: Yes: Normal Bowel Sounds, Soft. No: Distention, Tenderness Edema: No Labs: CBC, BMP 04/23/17 07:00 04/23/17 07:00 INR, PTT INR 1.02 (0.82-1.09) 04/23/17 07:00 Problem List - Problems (1) Acute CVA (cerebrovascular accident) Code(s): I63.9 - CEREBRAL INFARCTION, UNSPECIFIED (2) Atrial fibrillation Code(s): I48.91 - UNSPECIFIED ATRIAL FIBRILLATION Qualifiers: Atrial fibrillation type: paroxysmal Qualified Code(s): I48.0 - Paroxysmal atrial fibrillation (3) Chronic kidney disease (CKD) Code(s): N18.9 - CHRONIC KIDNEY DISEASE, UNSPECIFIED Qualifiers: Chronic kidney disease stage: stage 2 (mild) Qualified Code(s): N18.2 - Chronic kidney disease, stage 2 (mild) Assessment/Plan PLAN echo and MRI noted and d/w pt and at bedside Pt ambulating well on Heparin drip and Coumadin give extra 2.5mg tonight continue with meds refusing lovenox injections
[2017-04-23] MEDS: WARFARIN PROTOCOL PO SCH (17:35)
[2017-04-23] MEDS ORDERED: WARFARIN NA 2.5 MG TABLET (FP) PO ONE ×2 (18:00)
[2017-04-23] MEDS ORDERED: hydrALAZINE HCL 20 MG/ML VIAL IVPUSH ONE (20:30)
[2017-04-23] MEDS: HEPARIN INFUSION - 500 ML IVPB SCH (21:43)
[2017-04-23] MEDS: ENALAPRIL MALEATE 10 MG TABLET (FP) PO SCH (21:55)
[2017-04-23] MEDS: ROSUVASTATIN CA 10 MG TABLET (FP) PO SCH (21:55)
[2017-04-23] MEDS ORDERED: MAG HYDROX/AL HYDROX/SIMETH 30 ML UNIT-DOSE CUP PO PRN (22:44)
[2017-04-24] MEDS: LEVOTHYROXINE NA 50 MCG TABLET (FP) PO SCH (06:00)
[2017-04-24 07:37] LABS: BASOPHIL 0.8 % (0-2.0); EOSINOPHIL 3.2 % (0-4.5); MCH 31.3 pg (25.7-33.7); MEAN CELL VOLUME 92.1 fl (80-96); MEAN PLT VOLUME 9.9 fl (7.5-11.1); NEUTROPHILS 53.7 % (42.8-82.8); PLATELET COUNT 198 K/MM3 (134-434); RDW 13.6 % (11.6-15.6); WHITE BLOOD COUNT 8.9 K/mm3 (4.0-10.0)
[2017-04-24 07:39] LABS: INR 1.28 (0.82-1.09); PROTHROMBIN TIME (PATIENT) 14.2 SEC (9.98-11.88)
[2017-04-24 08:14] LABS: ANION GAP 9 (8-16); CALCIUM 8.3 mg/dL (8.5-10.1); CO2 22 mmol/L (21-32); CREATININE 1.3 mg/dL (0.55-1.02); GLUCOSE,RANDOM 92 mg/dL (74-106); MAGNESIUM 2.1 mg/dL (1.8-2.4); PHOSPHOROUS 2.9 mg/dL (2.5-4.9); THYROID STIMULATING HORMONE 1.82 uIU/ml (0.358-3.74)
[2017-04-24 09:02] LABS: FREE T4 1.29 ng/dl (0.76-1.46)
--- NOTE | 2017-04-24 09:51 | PN ---
Progress Note, Physician History of Present Illness: Dysarthria and left facial droop is resolving, hypertensive overnight, vasotec resumed with improvement in BP. - Current Medication List Current Medications: Active Medications Al Hydroxide/Mg Hydroxide (Mylanta Oral Suspension -) 30 ml PO Q6H PRN PRN Reason: INDIGESTION Last Admin: 04/23/17 23:09 Dose: 30 ml Amlodipine Besylate (Norvasc -) 5 mg PO DAILY [facility] [place] Last Admin: 04/23/17 10:10 Dose: 5 mg Ascorbic Acid (Vitamin C -) 500 mg PO BID [facility] [place] Last Admin: 04/23/17 21:55 Dose: 500 mg Enalapril Maleate (Vasotec -) 10 mg PO HS [facility] [place] Last Admin: 04/23/17 21:55 Dose: 10 mg Heparin Sodium (Porcine) (Heparin -) 5,000 unit IVPUSH PRN PRN Heparin Sodium (Porcine) (Heparin -) 1,000 unit IVPUSH PRN PRN Heparin Sodium/Dextrose (Heparin Infusion -) 500 mls @ 16 mls/hr IVPB TITR ELLIE ; 800 UNITS/HR PRN Reason: Protocol Last Admin: 04/23/17 21:43 Dose: Not Given Sodium Chloride (1/2 Normal Saline) 1,000 mls @ 50 mls/hr IV ASDIR [facility] [place] Stop: 04/24/17 11:37 Last Admin: 04/23/17 13:32 Dose: 50 mls/hr Levothyroxine Sodium (Synthroid -) 50 mcg PO DAILY@0700 [facility] [place] Last Admin: 04/24/17 06:00 Dose: 50 mcg Rosuvastatin Calcium (Crestor -) 10 mg PO HS [facility] [place] Last Admin: 04/23/17 21:55 Dose: 10 mg Sodium Bicarbonate (Sodium Bicarbonate -) 650 mg PO BID [facility] [place] Last Admin: 04/23/17 21:55 Dose: 650 mg Warfarin Sodium (Coumadin Protocol) 1 each PO 1800 [facility] PRN Reason: Protocol Last Admin: 04/23/17 17:35 Dose: 1 each Zinc Sulfate (Orazinc -) 220 mg PO DAILY [facility] [place] Last Admin: 04/23/17 10:10 Dose: 220 mg - Objective Vital Signs: Vital Signs Temperature 98.3 F 04/24/17 06:00 Pulse Rate 48 L 04/24/17 06:00 Respiratory Rate 20 04/24/17 06:00 Blood Pressure 139/51 04/24/17 06:00 O2 Sat by Pulse Oximetry (%) 97 04/23/17 21:00 Constitutional: Yes: No Distress, Calm Neck: Yes: Supple Cardiovascular: Yes: Regular Rate and Rhythm Respiratory: Yes: Regular, Diminished Gastrointestinal: Yes: Normal Bowel Sounds, Soft Edema: No Neurological: Yes: Dysarthria, Facial Droop Labs: CBC, BMP 04/24/17 05:35 04/24/17 05:35 INR, PTT INR 1.28 (0.82-1.09) H 04/24/17 05:35 - ....Imaging EKG: Report Reviewed (Tele: PAF->SR) Problem List - Problems (1) Acute CVA (cerebrovascular accident) Code(s): I63.9 - CEREBRAL INFARCTION, UNSPECIFIED (2) Atrial fibrillation Code(s): I48.91 - UNSPECIFIED ATRIAL FIBRILLATION Qualifiers: Atrial fibrillation type: paroxysmal Qualified Code(s): I48.0 - Paroxysmal atrial fibrillation (3) Hypertension Code(s): I10 - ESSENTIAL (PRIMARY) HYPERTENSION Qualifiers: Hypertension type: essential hypertension Qualified Code(s): I10 - Essential (primary) hypertension (4) Hypothyroidism Code(s): E03.9 - HYPOTHYROIDISM, UNSPECIFIED Qualifiers: Hypothyroidism type: unspecified Qualified Code(s): E03.9 - Hypothyroidism, unspecified (5) [id number] kidney injury Code(s): N17.9 - ACUTE KIDNEY FAILURE, UNSPECIFIED N18.9 - CHRONIC KIDNEY DISEASE, UNSPECIFIED (6) Hyperlipidemia Code(s): E78.5 - HYPERLIPIDEMIA, UNSPECIFIED Qualifiers: Hyperlipidemia type: pure hypercholesterolemia Qualified Code(s): E78.00 - Pure hypercholesterolemia, unspecified; E78.0 - Pure hypercholesterolemia Assessment/Plan Echocardiography report noted, normal LV size and function with mild to moderate MR and TR and Bi-atrial dilatation MRI focal acute/subacute infarct right posterior periventricular white matter 1. Acute stroke with residual facial drop and dysarthria resolving 2. Paroxysmal atrial Flutter/fibrillation currently in sinus rhythm, [id number] score of 7 on Heparin->Coumadin per INR, sinus bradycardia, sinus node dysfunction to be excluded 3. 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 Chronic diastolic LV dysfunction with class 0-I NYHA classification LV failure, compensated/euvolemic 5. HTN, hypertensive cardiovascular disease 6. Hypercholesterolemia 7. CKD with Hyperkalemia, resolved Hyperkalemia PLAN: 1. As outlined ideally should be on B-Blockers limiting factor is Bradycardia 2. Resumed Vasotec 10 qd given renal function stable 3. Continue Norvasc 5 qd 4. Continue Crestor 10 qhs 5. Continue Heparin and Coumadin as per protocol (patient preference) considering the above noted [id number] score of 7 6. Await Holter monitor results
[2017-04-24] MEDS ORDERED: PT OWN MED DRAWER 7, Y5N ONE (10:01)
[2017-04-24] MEDS: SODIUM BICARBONATE 650 MG TABLET PO SCH ×2 (10:04→22:02)
[2017-04-24] MEDS: ASCORBIC ACID 500 MG TABLET (FP) PO SCH ×2 (10:04→22:02)
[2017-04-24] MEDS: amLODIPine BESYLATE 5 MG TABLET (FP) PO SCH (10:04)
[2017-04-24] MEDS: ZINC SULFATE 220 MG CAPSULE (FP) PO SCH (10:04)
--- NOTE | 2017-04-24 12:42 | PN ---
Progress Note, Physician Chief Complaint: feels well says she has a pain at her right side constipated no other complaints - Current Medication List Current Medications: Active Medications Al Hydroxide/Mg Hydroxide (Mylanta Oral Suspension -) 30 ml PO Q6H PRN PRN Reason: INDIGESTION Last Admin: 04/23/17 23:09 Dose: 30 ml Amlodipine Besylate (Norvasc -) 5 mg PO DAILY [facility] Last Admin: 04/24/17 10:04 Dose: 5 mg Ascorbic Acid (Vitamin C -) 500 mg PO BID [facility] Last Admin: 04/24/17 10:04 Dose: 500 mg Enalapril Maleate (Vasotec -) 10 mg PO HS [facility] Last Admin: 04/23/17 21:55 Dose: 10 mg Heparin Sodium (Porcine) (Heparin -) 5,000 unit IVPUSH PRN PRN Heparin Sodium (Porcine) (Heparin -) 1,000 unit IVPUSH PRN PRN Heparin Sodium/Dextrose (Heparin Infusion -) 500 mls @ 16 mls/hr IVPB TITR ELLIE ; 800 UNITS/HR PRN Reason: Protocol Last Titration: 04/24/17 11:48 Dose: 600 units/hr Levothyroxine Sodium (Synthroid -) 50 mcg PO DAILY@0700 [facility] Last Admin: 04/24/17 06:00 Dose: 50 mcg Rosuvastatin Calcium (Crestor -) 10 mg PO HS [facility] Last Admin: 04/23/17 21:55 Dose: 10 mg Sodium Bicarbonate (Sodium Bicarbonate -) 650 mg PO BID [facility] Last Admin: 04/24/17 10:04 Dose: 650 mg Warfarin Sodium (Coumadin Protocol) 1 each PO 1800 [facility] PRN Reason: Protocol Last Admin: 04/23/17 17:35 Dose: 1 each Zinc Sulfate (Orazinc -) 220 mg PO DAILY [facility] Last Admin: 04/24/17 10:04 Dose: 220 mg - Objective Vital Signs: Vital Signs Temperature 98.4 F 04/24/17 10:00 Pulse Rate 48 L 04/24/17 10:00 Respiratory Rate 16 04/24/17 10:00 Blood Pressure 170/56 04/24/17 10:00 O2 Sat by Pulse Oximetry (%) 97 04/23/17 21:00 Constitutional: Yes: No Distress Cardiovascular: Yes: Pulse Irregular Respiratory: Yes: CTA Bilaterally, Other (tender right chest wall lower) Gastrointestinal: Yes: Normal Bowel Sounds, Soft. No: Distention, Tenderness Edema: No Labs: CBC, BMP 04/24/17 05:35 04/24/17 05:35 INR, PTT INR 1.28 (0.82-1.09) H 04/24/17 05:35 Problem List - Problems (1) Acute CVA (cerebrovascular accident) Code(s): I63.9 - CEREBRAL INFARCTION, UNSPECIFIED (2) Atrial fibrillation Code(s): I48.91 - UNSPECIFIED ATRIAL FIBRILLATION Qualifiers: Atrial fibrillation type: paroxysmal Qualified Code(s): I48.0 - Paroxysmal atrial fibrillation (3) Chronic kidney disease (CKD) Code(s): N18.9 - CHRONIC KIDNEY DISEASE, UNSPECIFIED Qualifiers: Chronic kidney disease stage: stage 2 (mild) Qualified Code(s): N18.2 - Chronic kidney disease, stage 2 (mild) Assessment/Plan PLAN echo and MRI noted and d/w pt and at bedside Pt ambulating well on Heparin drip and Coumadin give 5mg tonight continue with meds refusing lovenox injections Pain at side likely musculoskeletal stool softeners as needed Carotid doppler ordered to complete stroke work up
--- NOTE | 2017-04-24 12:53 | PN ---
Progress Note (short form) - Note Progress Note: Renal Follow up for KEYUR/Hyperkalemia Pt seen and examined at the bedside no acute complaints speech is improved no sob, chest pain Vital Signs Temperature 98.4 F 04/24/17 10:00 Pulse Rate 48 L 04/24/17 10:00 Respiratory Rate 16 04/24/17 10:00 Blood Pressure 170/56 04/24/17 10:00 O2 Sat by Pulse Oximetry (%) 97 04/23/17 21:00 Intake & Output 04/21/17 04/22/17 04/23/17 04/24/17 23:59 23:59 23:59 23:59 Intake Total 583 764 0901 434 Output Total 200 Balance 290 558 7486 434 Weight 144 lb 3 oz 144 lb 3 oz Gen: NAD, awake and alert CVS: RRR Lungs: CTA Abd; soft NT/ND Ext: No edema, clubbing or cyanosis CBC, BMP 04/24/17 05:35 04/24/17 05:35 Current Medications Al Hydroxide/Mg Hydroxide (Mylanta Oral Suspension -) 30 ml PO Q6H PRN PRN Reason: INDIGESTION Last Admin: 04/23/17 23:09 Dose: 30 ml Amlodipine Besylate (Norvasc -) 5 mg PO DAILY [facility] Last Admin: 04/24/17 10:04 Dose: 5 mg Ascorbic Acid (Vitamin C -) 500 mg PO BID [facility] Last Admin: 04/24/17 10:04 Dose: 500 mg Enalapril Maleate (Vasotec -) 10 mg PO HS [facility] Last Admin: 04/23/17 21:55 Dose: 10 mg Heparin Sodium (Porcine) (Heparin -) 5,000 unit IVPUSH PRN PRN Heparin Sodium (Porcine) (Heparin -) 1,000 unit IVPUSH PRN PRN Heparin Sodium/Dextrose (Heparin Infusion -) 500 mls @ 16 mls/hr IVPB TITR ELLIE ; 800 UNITS/HR PRN Reason: Protocol Last Titration: 04/24/17 11:48 Dose: 600 units/hr Levothyroxine Sodium (Synthroid -) 50 mcg PO DAILY@0700 [facility] Last Admin: 04/24/17 06:00 Dose: 50 mcg Rosuvastatin Calcium (Crestor -) 10 mg PO HS [facility] Last Admin: 04/23/17 21:55 Dose: 10 mg Sodium Bicarbonate (Sodium Bicarbonate -) 650 mg PO BID [facility] Last Admin: 04/24/17 10:04 Dose: 650 mg Warfarin Sodium (Coumadin Protocol) 1 each PO 1800 [facility] PRN Reason: Protocol Last Admin: 04/23/17 17:35 Dose: 1 each Zinc Sulfate (Orazinc -) 220 mg PO DAILY [facility] Last Admin: 04/24/17 10:04 Dose: 220 mg A/P 81 year old woman with PMhx of CKD (baseline Cr 1.5), Glucocorticoid-remediable aldosteronism, Hypertension who presented with complaints of slurred speech and found to have an acute CVA with BUN/Cr of 44/1.6 and K of 5.6 #Hyperkalemia in setting of CKD/Mild volume depletion and Aldactone use Renal function now improved to baseline K is now within normal limits on Enalapril (stated today by Cardiology) Trend BUN/Cr #Glucocorticoid-remediable aldosteronism/Hypertension off aldactones that mitigates effect of high aldosterone state BP has been above [place] Enalapril started as per cardiology will plan to start Aldactone tomororw if k is within normal limits #Acute CVA on Heparin gtt A/c as per neurology and primary Juan J Ramírez DO Problem List - Problems (1) Acute CVA (cerebrovascular accident) Code(s): I63.9 - CEREBRAL INFARCTION, UNSPECIFIED (2) Acute renal failure Code(s): N17.9 - ACUTE KIDNEY FAILURE, UNSPECIFIED Qualifiers: Acute renal failure type: unspecified Qualified Code(s): N17.9 - Acute kidney failure, unspecified (3) Chronic kidney disease (CKD) Code(s): N18.9 - CHRONIC KIDNEY DISEASE, UNSPECIFIED Qualifiers: Chronic kidney disease stage: stage 2 (mild) Qualified Code(s): N18.2 - Chronic kidney disease, stage 2 (mild) (4) Glucocorticoid-remediable aldosteronism Code(s): 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
--- NOTE | 2017-04-24 13:47 | PN ---
Progress Note, [employer] - Note Progress Note: Facial weakness continues to improve. Pt performing neuromuscular facilitation technique and oral motor exercises well, independently. Tolerating diet without difficulty. Speech more precise. Selected Entries 04/22/17 04/22/17 04/22/17 01:52 06:00 10:00 Breakfast Diet Tolerated Lunch Supper Temperature 97.6 F 98.1 F 97.8 F 04/22/17 04/22/17 04/22/17 13:11 18:00 21:00 Breakfast 75% Diet Tolerated Lunch 75% Supper 100% Temperature 98.4 F 98.7 F 98.2 F 04/23/17 04/23/17 04/23/17 02:54 06:00 10:36 Breakfast 100% Diet Tolerated Well Lunch Supper Temperature 98.4 F 97.9 F Pt reports occasional anterior leakage from left facial corner. S phoneme also becoming more precise but not yet at baseline. Provided additional tongue tip strengthening exercises. Addionally, educated pt on improving bilabial closure, especially on left, while drinking.
[2017-04-24] MEDS: POLYETHYLENE GLYCOL 3350 119 GM BTL PO SCH (17:23)
[2017-04-24] MEDS: WARFARIN PROTOCOL PO SCH (17:25)
[2017-04-24] MEDS ORDERED: WARFARIN NA 5 MG TABLET (UD) PO ONE (18:00)
[2017-04-24] MEDS: HEPARIN INFUSION - 500 ML IVPB SCH (18:04)
--- NOTE | 2017-04-24 20:12 | HOL ---
Hook-up date: 2017-04-23 09:22:00 Duration: 23:53:00 Test Indications: TIA, PAF Medications: 43830 QRS complexes 62 Ventricular ectopics which represent <1 % of total QRS comp. 318 Supraventricular ectopics which represent <1 % of total QRS comp. * Paced QRS complexs which represent % of total QRS comp. * % of Time Classified as Noise VENTRICULAR ECTOPY 60 Isolated 0 Bigeminal Cycles 1 Couplets 0 Runs 0 Beats in Runs * Beats LONGEST at * BPM at :: -- * Beats FASTEST at * BPM at :: -- SUPRAVENTRICULAR ECTOPY 264 Isolated 10 Couplets 8 Runs 34 Beats in Runs 7 Beats LONGEST at 138 BPM at 06:05:48 2017-04-24 3 Beats FASTEST at 153 BPM at 11:36:06 2017-04-23 HEART RATES 40 MIN at 00:46:22 2017-04-24 53 AVG 74 MAX at 11:18:31 2017-04-23 LONGEST RR 1.616 secs at 00:46:16 2017-04-24 SCANNED BY: JUDAH 04/24/17 EKG 04/11/17: AF/AFlutter, LVH, nonspecific ST-T changes. The underlying rhythmon Holter monitor is sinus, with an average HR of 53 bpm (40 bpm minimum; 74 bpm maximum). Infrequent PVCs, with one ventricular couplet. Occasional isolated APCs, with 8 runs of PSVT, the longest 7 beats at 138 bpm; the fastest 3 beats at 153 bpm. The longest pause was 1.61 seconds. Confirmed by CHERIE LOMELI MD ([id number]) on 04/24/2017 8:12:02 PM Referred By: Dennis NEIL Overread By: CHERIE LOMELI MD
[2017-04-24] MEDS ORDERED: ACETAMINOPHEN 325 MG TABLET (FP) ONE (21:56)
[2017-04-24] MEDS: ENALAPRIL MALEATE 10 MG TABLET (FP) PO SCH (22:02)
[2017-04-24] MEDS: ROSUVASTATIN CA 10 MG TABLET (FP) PO SCH (22:02)
[2017-04-25] MEDS: LEVOTHYROXINE NA 50 MCG TABLET (FP) PO SCH (07:25)
[2017-04-25 08:18] LABS: ANION GAP 8 (8-16); CALCIUM 8.6 mg/dL (8.5-10.1); CO2 24 mmol/L (21-32); CREATININE 1.2 mg/dL (0.55-1.02); GLUCOSE,RANDOM 89 mg/dL (74-106); MAGNESIUM 2.3 mg/dL (1.8-2.4); PHOSPHOROUS 2.6 mg/dL (2.5-4.9)
--- NOTE | 2017-04-25 08:18 | CONS ---
DATE OF CONSULTATION: 04/21/2017 CONSULTATION REQUESTED BY: Dr. Perez Prakash. CHIEF COMPLAINT: Slurred speech, left facial droop, atrial arrhythmia. An 81-year-old female with known history of probable coronary artery disease, anginal pectoris, diastolic left ventricular dysfunction with class 0 [place] Association Classification left ventricular failure, paroxysmal atrial fibrillation, currently on no anticoagulation therapy, hypertensive cardiovascular disease, hypercholesterolemia, chronic kidney disease, peripheral vascular disease, who presented to [facility] with headache followed by slurred speech and left facial droop. Upon evaluation in the emergency room, patient was noted to have evidence of atypical atrial flutter with controlled ventricular response and subsequently she converted to sinus rhythm, sinus bradycardia. Cardiac evaluation was requested. Patient did not report any additional neurologic deficits. Patient denied any palpitations. Patient denied any dizziness or lightheadedness. Patient does not report any chest discomfort. Patient denies any dyspnea, orthopnea, paroxysmal nocturnal dyspnea, or peripheral edema. The patient does not report any fatigue or tiredness. As noted above patient currently in sinus rhythm and she is hypertensive requiring therapy adjustments. PAST MEDICAL HISTORY: Probable coronary artery disease, angina pectoris, diastolic left ventricular dysfunction with class 0 [place] Heart Association Classification, left ventricular failure, paroxysmal atrial fibrillation currently on no anticoagulation therapy, hypertensive cardiovascular disease, hypercholesterolemia, chronic kidney disease, peripheral vascular disease, right femoral artery pseudoaneurysm post repair. SOCIAL HISTORY: Nonsmoker. FAMILY HISTORY: Positive for coronary artery disease. ALLERGIES: CIPRO AND ERYTHROMYCIN. MEDICAL THERAPY AT HOME: Included Plavix 75 mg once a day, Crestor 5 mg once a day, sodium bicarbonate 650 mg twice a day, Aldactone 25 mg once a day, Synthroid 25 mcg once a day for hypothyroidism, Vasotec 5 mg once a day, vitamin C 500 mg twice a day, zinc 50 mg once a day. REVIEW OF SYSTEMS: Head and Neck: Denies headache, photophobia, blurring of vision. Respiratory: No cough or sputum production. Cardiovascular: As noted above. Gastrointestinal: No nausea, vomiting, diarrhea, abdominal discomfort. Genitourinary: No symptoms reported. PHYSICAL EXAMINATION: Vital Signs: Blood pressure 185/89 mmHg, pulse rate is 56 beats per minute. Head and Neck: Pupils equal, round, reactive to light and accommodation. Extraocular muscles intact. Anicteric sclerae. Negative JVD. No bruit appreciated. Chest: Clear to auscultation and percussion. Cardiovascular: S1, S2 regular. No murmur, clicks or gallops. Abdomen: Soft, benign, normoactive bowel sounds. Extremities: Negative edema, 1+ distal pulses, no calf tenderness. Electrocardiogram in the emergency room revealed atrial flutter with variable AV conduction and nonspecific ST segment and T-wave abnormality. CBC reveal white cell count of 8.4, hemoglobin 13.8, platelet count 278, INR 1.01. Basic metabolic profile with sodium 134, potassium 5.6, BUN of 44, creatinine 1.6, CPK 76, troponin less than 0.03. CT scan of the head report was noted. Chest x-ray report was noted. ASSESSMENT: 1. Clinical presentation is consistent with cerebral vascular accident, transischemic attack with residual facial droop. 2. Paroxysmal atrial flutter/fibrillation currently in sinus rhythm. CHADSVASC score of 7, currently on no anticoagulation therapy. Sinus bradycardia. Sinus node dysfunction to be excluded. 3. Probable coronary artery disease, angina pectoris. 4. Chronic diastolic left ventricular dysfunction with class 0 to 1 [place] Heart Association Classification left ventricular failure. 5. Hypertensive cardiovascular disease not at goal. 6. Hypercholesterolemia. 7. Chronic kidney disease with hyperkalemia. PLAN: 1. Ideally patient should be on beta jcarlos therapy limiting factor is bradycardia. 2. Continuation of Vasotec with caution considering the above noted chronic kidney disease with hyperkalemia and titration of dosage. 3. Addition of Norvasc. 4. Continuation of Crestor. 5. Continuation of Plavix for now and watermaster anticoagulation is recommended with Coumadin or new oral anticoagulants considering the above noted CHADSVASC score of 7. Initiate heparin. 6. Discontinuation of Aldactone therapy related to the above noted hyperkalemia. 7. Holter Monitor. 8. Carotid Doppler study. 9. Brain MRI/MRA. 10. Echocardiography for evaluation of left ventricular size and function and left atrial measurement. 11. Recommend transfer to telemetry at [facility] for further observation and management. Thank you for the kind referral. Marybeth [id number]
[2017-04-25 08:49] LABS: INR 2.19 (0.82-1.09); PROTHROMBIN TIME (PATIENT) 24.5 SEC (9.98-11.88)
[2017-04-25 08:52] LABS: ACTIVATED PTT 71.1 SECONDS (26.9-34.4)
[2017-04-25] MEDS: POLYETHYLENE GLYCOL 3350 119 GM BTL PO SCH (09:22)
[2017-04-25] MEDS: ASCORBIC ACID 500 MG TABLET (FP) PO SCH (09:23)
[2017-04-25] MEDS: SODIUM BICARBONATE 650 MG TABLET PO SCH (09:23)
[2017-04-25] MEDS: amLODIPine BESYLATE 5 MG TABLET (FP) PO SCH (09:23)
[2017-04-25] MEDS: ZINC SULFATE 220 MG CAPSULE (FP) PO SCH (09:23)
[2017-04-25 09:31] VITALS: TEMP 98
[2017-04-25 09:35] VITALS: BP 132/61; PULSE 75
--- NOTE | 2017-04-25 10:11 | PN ---
Progress Note, Physician History of Present Illness: Dysarthria and left facial droop is resolving, hypertensive overnight, back on vasotec with improvement in BP. - Current Medication List Current Medications: Active Medications Al Hydroxide/Mg Hydroxide (Mylanta Oral Suspension -) 30 ml PO Q6H PRN PRN Reason: INDIGESTION Last Admin: 04/23/17 23:09 Dose: 30 ml Amlodipine Besylate (Norvasc -) 5 mg PO DAILY [facility] Last Admin: 04/25/17 09:23 Dose: 5 mg Ascorbic Acid (Vitamin C -) 500 mg PO BID [facility] Last Admin: 04/25/17 09:23 Dose: 500 mg Enalapril Maleate (Vasotec -) 10 mg PO HS [facility] Last Admin: 04/24/17 22:02 Dose: 10 mg Heparin Sodium (Porcine) (Heparin -) 5,000 unit IVPUSH PRN PRN Heparin Sodium (Porcine) (Heparin -) 1,000 unit IVPUSH PRN PRN Heparin Sodium/Dextrose (Heparin Infusion -) 500 mls @ 16 mls/hr IVPB TITR ELLIE ; 800 UNITS/HR PRN Reason: Protocol Last Admin: 04/24/17 18:04 Dose: 12 mls/hr Levothyroxine Sodium (Synthroid -) 50 mcg PO DAILY@0700 [facility] Last Admin: 04/25/17 07:25 Dose: 50 mcg Polyethylene Glycol (Miralax (For Daily Use) -) 17 gm PO DAILY [facility] Last Admin: 04/25/17 09:22 Dose: Not Given Rosuvastatin Calcium (Crestor -) 10 mg PO HS [facility] Last Admin: 04/24/17 22:02 Dose: 10 mg Sodium Bicarbonate (Sodium Bicarbonate -) 650 mg PO BID [facility] Last Admin: 04/25/17 09:23 Dose: 650 mg Warfarin Sodium (Coumadin Protocol) 1 each PO 1800 ELLIE PRN Reason: Protocol Last Admin: 04/24/17 17:25 Dose: Not Given Zinc Sulfate (Orazinc -) 220 mg PO DAILY [facility] Last Admin: 04/25/17 09:23 Dose: 220 mg - Objective Vital Signs: Vital Signs Temperature 98.0 F 04/25/17 09:29 Pulse Rate 75 04/25/17 09:34 Respiratory Rate 18 04/25/17 09:34 Blood Pressure 132/61 04/25/17 09:34 O2 Sat by Pulse Oximetry (%) 97 04/23/17 21:00 Constitutional: Yes: No Distress, Calm Neck: Yes: Supple Cardiovascular: Yes: Regular Rate and Rhythm Respiratory: Yes: Regular, Diminished Gastrointestinal: Yes: Normal Bowel Sounds, Soft Edema: No Labs: CBC, BMP 04/24/17 05:35 04/25/17 06:00 INR, PTT INR 2.19 (0.82-1.09) H D 04/25/17 06:00 Problem List - Problems (1) Acute CVA (cerebrovascular accident) Code(s): I63.9 - CEREBRAL INFARCTION, UNSPECIFIED (2) Atrial fibrillation Code(s): I48.91 - UNSPECIFIED ATRIAL FIBRILLATION Qualifiers: Atrial fibrillation type: paroxysmal Qualified Code(s): I48.0 - Paroxysmal atrial fibrillation (3) Hypertension Code(s): I10 - ESSENTIAL (PRIMARY) HYPERTENSION Qualifiers: Hypertension type: essential hypertension Qualified Code(s): I10 - Essential (primary) hypertension (4) Hypothyroidism Code(s): E03.9 - HYPOTHYROIDISM, UNSPECIFIED Qualifiers: Hypothyroidism type: unspecified Qualified Code(s): E03.9 - Hypothyroidism, unspecified (5) [id number] kidney injury Code(s): N17.9 - ACUTE KIDNEY FAILURE, UNSPECIFIED N18.9 - CHRONIC KIDNEY DISEASE, UNSPECIFIED (6) Hyperlipidemia Code(s): E78.5 - HYPERLIPIDEMIA, UNSPECIFIED Qualifiers: Hyperlipidemia type: pure hypercholesterolemia Qualified Code(s): E78.00 - Pure hypercholesterolemia, unspecified; E78.0 - Pure hypercholesterolemia Assessment/Plan Echocardiography report noted, normal LV size and function with mild to moderate MR and TR and Bi-atrial dilatation MRI focal acute/subacute infarct right posterior periventricular white matter 1. Acute stroke with residual facial drop and dysarthria resolving 2. Paroxysmal atrial Flutter/fibrillation currently in sinus rhythm, [id number] score of 7 on Heparin->Coumadin now with therapeutic INR, sinus bradycardia, sinus node dysfunction to be excluded 3. 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 Chronic diastolic LV dysfunction with class 0-I NYHA classification LV failure, compensated/euvolemic 5. HTN, hypertensive cardiovascular disease 6. Hypercholesterolemia 7. CKD with Hyperkalemia, resolved 8. 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 As outlined ideally should be on B-Blockers limiting factor is Bradycardia 2. Continue Vasotec 10 qd given stable renal function, renal plans to resume Aldactone 3. Continue Norvasc 5 qd 4. Continue Crestor 10 qhs 5. Continue Heparin and Coumadin as per protocol (patient preference) considering the above noted [id number] score of 7 6. Holter monitor shows SR Average HR 53, range 40-74, infrequent PVC, 1.6 sec pause, 8 runs PSVT longest 7 beats, no paroxysmal afib
--- NOTE | 2017-04-25 12:53 | PN ---
Progress Note (short form) - Note Progress Note: Renal Follow up for KEYUR/Hyperkalemia Pt seen and examined at the bedside no acute complaints willing to remain on low potassium diet no sob, chest pain BP is better today Vital Signs Temperature 98.0 F 04/25/17 09:29 Pulse Rate 75 04/25/17 09:34 Respiratory Rate 18 04/25/17 09:34 Blood Pressure 132/61 04/25/17 09:34 O2 Sat by Pulse Oximetry (%) 97 04/23/17 21:00 Intake & Output 04/22/17 04/23/17 04/24/17 04/25/17 23:59 23:59 23:59 23:59 Intake Total 143 1244 1230 400 Balance 143 1244 1230 400 Weight 144 lb 3 oz Gen: NAD, awake and alert CVS: RRR Lungs: CTA Abd; soft NT/ND Ext: No edema, clubbing or cyanosis CBC, BMP 04/24/17 05:35 04/25/17 06:00 Laboratory Tests 04/24/17 04/25/17 05:35 06:00 Calcium 8.3 L 8.6 Phosphorus 2.9 D 2.6 Magnesium 2.1 2.3 Current Medications Al Hydroxide/Mg Hydroxide (Mylanta Oral Suspension -) 30 ml PO Q6H PRN PRN Reason: INDIGESTION Last Admin: 04/23/17 23:09 Dose: 30 ml Amlodipine Besylate (Norvasc -) 5 mg PO DAILY [facility] Last Admin: 04/25/17 09:23 Dose: 5 mg Ascorbic Acid (Vitamin C -) 500 mg PO BID [facility] Last Admin: 04/25/17 09:23 Dose: 500 mg Enalapril Maleate (Vasotec -) 10 mg PO HS [facility] Last Admin: 04/24/17 22:02 Dose: 10 mg Heparin Sodium (Porcine) (Heparin -) 5,000 unit IVPUSH PRN PRN Heparin Sodium (Porcine) (Heparin -) 1,000 unit IVPUSH PRN PRN Heparin Sodium/Dextrose (Heparin Infusion -) 500 mls @ 16 mls/hr IVPB TITR ELLIE ; 800 UNITS/HR PRN Reason: Protocol Last Admin: 04/24/17 18:04 Dose: 12 mls/hr Levothyroxine Sodium (Synthroid -) 50 mcg PO DAILY@0700 [facility] Last Admin: 04/25/17 07:25 Dose: 50 mcg Polyethylene Glycol (Miralax (For Daily Use) -) 17 gm PO DAILY [facility] Last Admin: 04/25/17 09:22 Dose: Not Given Rosuvastatin Calcium (Crestor -) 10 mg PO HS [facility] Last Admin: 04/24/17 22:02 Dose: 10 mg Sodium Bicarbonate (Sodium Bicarbonate -) 650 mg PO BID [facility] Last Admin: 04/25/17 09:23 Dose: 650 mg Spironolactone (Aldactone -) 25 mg PO DAILY [facility] Warfarin Sodium (Coumadin Protocol) 1 each PO 1800 [facility] PRN Reason: Protocol Last Admin: 04/24/17 17:25 Dose: Not Given Zinc Sulfate (Orazinc -) 220 mg PO DAILY [facility] Last Admin: 04/25/17 09:23 Dose: 220 mg A/P 81 year old woman with PMhx of CKD (baseline Cr 1.5), Glucocorticoid-remediable aldosteronism, Hypertension who presented with complaints of slurred speech and found to have an acute CVA with BUN/Cr of 44/1.6 and K of 5.6 #Hyperkalemia in setting of CKD/Mild volume depletion and Aldactone use Renal funtion and potassium improved continue low k diet restart aldactone today trend BUN/Cr and K #Glucocorticoid-remediable aldosteronism/Hypertension BP improved on higher dose of Enalapril restart Aldactone today Trend BP #Acute CVA on Heparin gtt A/c as per neurology and primary Juan J Darrell LEVY Problem List - Problems (1) Acute CVA (cerebrovascular accident) Code(s): I63.9 - CEREBRAL INFARCTION, UNSPECIFIED (2) Acute renal failure Code(s): N17.9 - ACUTE KIDNEY FAILURE, UNSPECIFIED Qualifiers: Acute renal failure type: unspecified Qualified Code(s): N17.9 - Acute kidney failure, unspecified (3) Chronic kidney disease (CKD) Code(s): N18.9 - CHRONIC KIDNEY DISEASE, UNSPECIFIED Qualifiers: Chronic kidney disease stage: stage 2 (mild) Qualified Code(s): N18.2 - Chronic kidney disease, stage 2 (mild) (4) Glucocorticoid-remediable aldosteronism Code(s): 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
[2017-04-25] MEDS ORDERED: SPIRONOLACTONE 25 MG TABLET (FP) PO SCH (13:15)
--- NOTE | 2017-04-25 13:49 | DS ---
Physical Examination Vital Signs: Vital Signs Temperature 98.0 F 04/25/17 09:29 Pulse Rate 75 04/25/17 09:34 Respiratory Rate 18 04/25/17 09:34 Blood Pressure 132/61 04/25/17 09:34 O2 Sat by Pulse Oximetry (%) 97 04/23/17 21:00 Constitutional: Yes: No Distress, Calm HENT: Yes: Other (facial droop on left) Cardiovascular: Yes: Pulse Irregular Respiratory: Yes: CTA Bilaterally Gastrointestinal: Yes: Normal Bowel Sounds, Soft. No: Distention, Tenderness Edema: No Labs: CBC, BMP 04/24/17 05:35 04/25/17 06:00 Discharge Summary Reason For Visit: TIA Current Active Problems Acute CVA (cerebrovascular accident) (Acute) Acute renal failure (Acute) Bzvif-kv-mhllyib kidney injury (Acute) Atrial fibrillation (Acute) Bradycardia (Acute) Chronic kidney disease (CKD) (Acute) Coffee ground emesis (Acute) Elevated LFTs (Acute) Glucocorticoid-remediable aldosteronism (Acute) Hematoma (Acute) Hyperlipidemia (Acute) Hypertension (Acute) Hypothyroidism (Acute) Lactic acidosis (Acute) Leukocytosis (Acute) Near syncope (Acute) Pseudoaneurysm of right femoral artery (Acute) Status post peripheral artery angioplasty (Acute) TIA (transient ischemic attack) (Acute) Vasovagal syncope (Acute) Hospital Course: Admitted for acute CVA Seen by Neurologist, Cardiology and Renal MRI brain confirms acute CVA Carotid doppler -- no significant stenosis per Vascular surgeon Pt also has Afib-- on Coumadin -- therapeutic INR Had also been evaluated by Swallow therapist-- no difficulty in swallowing Pt is stable for dc home No weakness Pt advised to follow up in a week for INR , BMP Condition: Fair - Instructions Diet, Activity, Other Instructions: follow up in 1 week to check INR Disposition: HOME - Home Medications Comprehensive Discharge Medication List: Ambulatory Orders Ascorbate Calcium [Vitamin C] 1 tab PO BID 06/19/16 Levothyroxine [Synthroid -] 0.05 mg PO DAILY@0700 04/21/17 Sodium Bicarbonate - 650 mg PO BID 04/21/17 Amlodipine Besylate [Norvasc -] 5 mg PO DAILY #90 tablet 04/25/17 Enalapril Maleate [Vasotec -] 10 mg PO HS #90 tablet 04/25/17 Mag Hydrox/Al Hydrox/Simeth [Mylanta Oral Suspension -] 30 ml PO Q6H PRN #90 syr 04/25/17 Polyethylene Glycol 3350 [Miralax 119 gm Btl -] 17 gm PO DAILY #1 bottle Rosuvastatin [Crestor -] 10 mg PO HS #90 tablet 04/25/17 Spironolactone [Aldactone -] 25 mg PO DAILY #90 tablet 04/25/17 Warfarin Na [Coumadin -] 5 mg PO DAILY@1800 #30 tablet 04/25/17
[2017-04-25] MEDS ORDERED: WARFARIN NA 2.5 MG TABLET (FP) PO ONE (15:00)
== END 2017-04-25 14:47 | disposition home or self-care (01) | DRG 65 ==
LOC: FER 11:25 → FM/S 14:40 → J4S 18:59 → OBSVTOIN 04-22 13:14
PROVIDERS: ADMIT Internal Medicine; ATTEND Internal Medicine
DX: I63.9 Cerebral infarction, unspecified (principal); I48.92 Unspecified atrial flutter; I25.110 Atherosclerotic heart disease of native coronary artery with unstable angina pectoris; I13.0 Hypertensive heart and chronic kidney disease with heart failure and stage 1 through stage 4 chronic kidney disease, or unspecified chronic kidney disease; I50.32 Chronic diastolic (congestive) heart failure; N17.9 Acute kidney failure, unspecified; R29.702 NIHSS score 2; R00.1 Bradycardia, unspecified; R29.810 Facial weakness; E86.0 Dehydration; I73.89 Other specified peripheral vascular diseases; E78.00 Pure hypercholesterolemia, unspecified; I48.0 Paroxysmal atrial fibrillation; E87.5 Hyperkalemia; E00-E89 Endocrine, nutritional and metabolic diseases; M19.90 Unspecified osteoarthritis, unspecified site; E03.9 Hypothyroidism, unspecified; N18.2 Chronic kidney disease, stage 2 (mild); I65.22 Occlusion and stenosis of left carotid artery; Z79.01 Long term (current) use of anticoagulants
CPT/HCPCS: 36415; 70450-TC; 70551-TC; 71010-TC; 80048; 80053; 80061; 83721; 83735; 84100; 84439; 84443; 84484; 85025; 85610; 85730; 93005; 93225; 93226; 93306-TC; 93880-TC; 97116-GP; 97161-GP; 99285-25; G0378; J1644

== ENCOUNTER 2022-07-18 23:45 | Inpatient (IN) | payer OTHER, MEDICARE ==
[2022-07-19] MEDS ORDERED: morphine CARPU-JECT 2 MG/1 ML DISP.SYRIN IVPUSH ONE ×3 (01:22→04:17)
[2022-07-19 01:35] LABS: BASO % 0.9 % (0-2.0); EOS % 0.8 % (0-4.5); HEMATOCRIT 37.1 % (32.4-45.2); HEMOGLOBIN 12.3 GM/dL (10.7-15.3); LYMPH % 8.6 % (8-40); MCH 31.5 pg (25.7-33.7); MCHC 33.2 g/dl (32.0-36.0); MEAN CELL VOLUME 94.7 fl (80-96); MEAN PLT VOLUME 8.9 fl (7.5-11.1); MONO % 7.4 % (3.8-10.2); NEUT % 82.3 % (42.8-82.8); PLATELET COUNT 210 10^3/uL (134-434); RBC 3.91 M/mm3 (3.60-5.2); RDW 14.2 % (11.6-15.6); WHITE BLOOD COUNT 14.2 K/mm3 (4.0-10.0)
[2022-07-19 01:41] LABS: INR 1.31 (0.83-1.09); PROTHROMBIN TIME (PATIENT) 15.1 SEC (9.7-13.0)
[2022-07-19 01:44] LABS: ACTIVATED PTT 28.6 SECONDS (25.2-36.5)
[2022-07-19 01:56] LABS: ALBUMIN 3.5 g/dl (3.4-5.0); CALCIUM 9.4 mg/dL (8.5-10.1)
[2022-07-19 01:57] LABS: BLOOD UREA NITROGEN 40.4 mg/dL (7-18); MAGNESIUM 2.2 mg/dL (1.8-2.4)
[2022-07-19 02:00] LABS: CREATININE 1.6 mg/dL (0.55-1.3)
[2022-07-19 02:01] LABS: BILIRUBIN,TOTAL 0.5 mg/dL (0.2-1); TOT PROT 6.6 g/dl (6.4-8.2)
[2022-07-19] MEDS ORDERED: ACETAMINOPHEN 1000 MG/100 ML BAG IVPB ONE (02:01)
[2022-07-19] MEDS ORDERED: LIDOCAINE 5% TOPICAL PATCH TP ONE (02:01)
[2022-07-19] MEDS ORDERED: LIDOCAINE 5% TOPICAL PATCH ONE (02:06)
[2022-07-19] MEDS ORDERED: ACETAMINOPHEN INJECTION 100 ML IVPB ONE (02:06)
[2022-07-19] MEDS ORDERED: ONDANSETRON 4 MG/2 ML VIAL IVPUSH ONE (04:53)
[2022-07-19] MEDS ORDERED: ONDANSETRON 4 MG/2 ML VIAL ONE (05:10)
[2022-07-19 05:31] LABS: PH,URINE 5.5 (5.0-8.0); URINE APPEARANCE CLEAR; URINE BILIRUBIN NEGATIVE (NEGATIVE); URINE COLOR YELLOW; URINE GLUCOSE (UA) NEGATIVE (NEGATIVE); URINE KETONE NEGATIVE (NEGATIVE); URINE LEUK ESTERASE NEGATIVE (NEGATIVE); URINE NITRITE NEGATIVE (NEGATIVE); URINE PROTEIN NEGATIVE (NEGATIVE); URINE UROBILINOGEN 0.2 mg/dL (0.2-1.0)
[2022-07-19] MEDS: DEXTROSE 5%-0.45% SALINE 1,000 ML IV SCH (06:46)
[2022-07-19] MEDS: ACETAMINOPHEN 1000 MG/100 ML BAG IVPB PRN ×3 (09:24→19:46)
[2022-07-19] MEDS: LEVOTHYROXINE NA 50 MCG TABLET (FP) PO SCH (09:25)
[2022-07-19 11:53] VITALS: BMI 28.7
[2022-07-19] MEDS: SPIRONOLACTONE 25 MG TABLET PO SCH (12:11)
[2022-07-19] MEDS: APIXABAN 2.5 MG TABLET PO SCH (22:27)
[2022-07-19] MEDS: hydrALAZINE HCL 25 MG TABLET (FP) PO SCH (22:28)
[2022-07-19] MEDS: ROSUVASTATIN CA 10 MG TABLET PO SCH (22:28)
[2022-07-19] MEDS: LIDOCAINE PATCH REMOVAL MC SCH (22:29)
[2022-07-20] MEDS: ACETAMINOPHEN 1000 MG/100 ML BAG IVPB PRN ×3 (01:50→15:51)
[2022-07-20] MEDS: LEVOTHYROXINE NA 50 MCG TABLET (FP) PO SCH (06:59)
[2022-07-20] MEDS: APIXABAN 2.5 MG TABLET PO SCH ×2 (09:43→21:24)
[2022-07-20] MEDS: SPIRONOLACTONE 25 MG TABLET PO SCH (09:43)
[2022-07-20] MEDS: hydrALAZINE HCL 25 MG TABLET (FP) PO SCH ×2 (09:43→21:24)
[2022-07-20 10:22] LABS: HEMATOCRIT 36.6 % (32.4-45.2); HEMOGLOBIN 12.3 GM/dL (10.7-15.3); MCH 32.4 pg (25.7-33.7); MCHC 33.6 g/dl (32.0-36.0); MEAN CELL VOLUME 96.6 fl (80-96); MEAN PLT VOLUME 9.6 fl (7.5-11.1); PLATELET COUNT 171 10^3/uL (134-434); RBC 3.79 M/mm3 (3.60-5.2); RDW 14.2 % (11.6-15.6); WHITE BLOOD COUNT 8.4 K/mm3 (4.0-10.0)
[2022-07-20 10:50] LABS: BLOOD UREA NITROGEN 36.3 mg/dL (7-18); CALCIUM 9.2 mg/dL (8.5-10.1)
[2022-07-20 10:54] LABS: CREATININE 1.5 mg/dL (0.55-1.3)
[2022-07-20] MEDS: LIDOCAINE 5% TOPICAL PATCH TP SCH (14:17)
[2022-07-20] MEDS ORDERED: oxyCODONE HCL 5 MG TABLET PO ONE (16:28)
[2022-07-20] MEDS: ROSUVASTATIN CA 10 MG TABLET PO SCH (21:24)
[2022-07-20] MEDS: LIDOCAINE PATCH REMOVAL MC SCH ×2 (21:27)
[2022-07-21] MEDS: LEVOTHYROXINE NA 50 MCG TABLET (FP) PO SCH (06:32)
[2022-07-21] MEDS: DEXTROSE 5%-0.45% SALINE 1,000 ML IV SCH (06:33)
[2022-07-21] MEDS: ACETAMINOPHEN 500 MG TABLET (FP) PO PRN (08:18)
[2022-07-21] MEDS: LIDOCAINE 5% TOPICAL PATCH TP SCH (09:14)
[2022-07-21] MEDS: SPIRONOLACTONE 25 MG TABLET PO SCH (09:14)
[2022-07-21] MEDS: hydrALAZINE HCL 25 MG TABLET (FP) PO SCH ×2 (09:15→21:28)
[2022-07-21] MEDS: APIXABAN 2.5 MG TABLET PO SCH ×2 (09:15→21:28)
[2022-07-21] MEDS: oxyCODONE HCL 5 MG TABLET PO PRN ×2 (12:45→18:38)
[2022-07-21] MEDS: ROSUVASTATIN CA 10 MG TABLET PO SCH (21:28)
[2022-07-21] MEDS: LIDOCAINE PATCH REMOVAL MC SCH ×2 (21:29)
[2022-07-22] MEDS: DEXTROSE 5%-0.45% SALINE 1,000 ML IV SCH (06:14)
[2022-07-22] MEDS: oxyCODONE HCL 5 MG TABLET PO PRN (06:14)
[2022-07-22] MEDS: LEVOTHYROXINE NA 50 MCG TABLET (FP) PO SCH (06:14)
[2022-07-22] MEDS: APIXABAN 2.5 MG TABLET PO SCH ×2 (10:31→22:00)
[2022-07-22] MEDS: LIDOCAINE 5% TOPICAL PATCH TP SCH (10:32)
[2022-07-22] MEDS: SPIRONOLACTONE 25 MG TABLET PO SCH (10:32)
[2022-07-22] MEDS: hydrALAZINE HCL 25 MG TABLET (FP) PO SCH ×2 (10:32→22:00)
[2022-07-22] MEDS: ACETAMINOPHEN 500 MG TABLET (FP) PO PRN (12:35)
[2022-07-22] MEDS: ROSUVASTATIN CA 10 MG TABLET PO SCH (22:00)
[2022-07-22] MEDS: LIDOCAINE PATCH REMOVAL MC SCH ×2 (22:00)
[2022-07-23] MEDS: oxyCODONE HCL 5 MG TABLET PO PRN ×2 (02:15→09:35)
[2022-07-23] MEDS: DEXTROSE 5%-0.45% SALINE 1,000 ML IV SCH (06:27)
[2022-07-23] MEDS: LEVOTHYROXINE NA 50 MCG TABLET (FP) PO SCH (06:28)
[2022-07-23] MEDS: ACETAMINOPHEN 500 MG TABLET (FP) PO PRN ×2 (06:30→22:01)
[2022-07-23] MEDS: LIDOCAINE 5% TOPICAL PATCH TP SCH (09:35)
[2022-07-23] MEDS: APIXABAN 2.5 MG TABLET PO SCH ×2 (09:35→22:00)
[2022-07-23] MEDS: SPIRONOLACTONE 25 MG TABLET PO SCH (09:35)
[2022-07-23] MEDS: hydrALAZINE HCL 25 MG TABLET (FP) PO SCH ×2 (09:36→22:00)
[2022-07-23] MEDS: ROSUVASTATIN CA 10 MG TABLET PO SCH (22:00)
[2022-07-23] MEDS: LIDOCAINE PATCH REMOVAL MC SCH ×2 (22:05)
[2022-07-24] MEDS: oxyCODONE HCL 5 MG TABLET PO PRN (01:15)
[2022-07-24] MEDS: LEVOTHYROXINE NA 50 MCG TABLET (FP) PO SCH (06:02)
[2022-07-24] MEDS: DEXTROSE 5%-0.45% SALINE 1,000 ML IV SCH (09:42)
[2022-07-24] MEDS: LIDOCAINE 5% TOPICAL PATCH TP SCH (09:43)
[2022-07-24] MEDS: SPIRONOLACTONE 25 MG TABLET PO SCH (09:45)
[2022-07-24] MEDS: ACETAMINOPHEN 500 MG TABLET (FP) PO PRN (09:46)
[2022-07-24] MEDS: hydrALAZINE HCL 25 MG TABLET (FP) PO SCH ×2 (09:47→21:02)
[2022-07-24] MEDS: APIXABAN 2.5 MG TABLET PO SCH ×2 (09:47→21:03)
[2022-07-24] MEDS ORDERED: ALPRAZolam 0.25 MG TABLET PO PRN (10:56)
[2022-07-24] MEDS: LIDOCAINE PATCH REMOVAL MC SCH ×2 (21:05)
[2022-07-24] MEDS: ROSUVASTATIN CA 10 MG TABLET PO SCH (21:05)
[2022-07-25] MEDS: oxyCODONE HCL 5 MG TABLET PO PRN ×2 (03:01→19:55)
[2022-07-25] MEDS: LEVOTHYROXINE NA 50 MCG TABLET (FP) PO SCH (06:12)
[2022-07-25] MEDS: hydrALAZINE HCL 25 MG TABLET (FP) PO SCH ×2 (09:36→22:52)
[2022-07-25] MEDS: LIDOCAINE 5% TOPICAL PATCH TP SCH (09:36)
[2022-07-25] MEDS: SPIRONOLACTONE 25 MG TABLET PO SCH (09:36)
[2022-07-25] MEDS: APIXABAN 2.5 MG TABLET PO SCH ×2 (09:36→22:52)
[2022-07-25] MEDS: ROSUVASTATIN CA 10 MG TABLET PO SCH (22:52)
[2022-07-25] MEDS: LIDOCAINE PATCH REMOVAL MC SCH ×2 (22:54)
[2022-07-26] MEDS: oxyCODONE HCL 5 MG TABLET PO PRN ×2 (04:46→21:59)
[2022-07-26] MEDS: LEVOTHYROXINE NA 50 MCG TABLET (FP) PO SCH (06:18)
[2022-07-26] MEDS: hydrALAZINE HCL 25 MG TABLET (FP) PO SCH ×2 (09:36→21:56)
[2022-07-26] MEDS: APIXABAN 2.5 MG TABLET PO SCH ×2 (09:36→21:56)
[2022-07-26] MEDS: SPIRONOLACTONE 25 MG TABLET PO SCH (09:36)
[2022-07-26] MEDS: ACETAMINOPHEN 500 MG TABLET (FP) PO PRN (09:36)
[2022-07-26] MEDS: LIDOCAINE 5% TOPICAL PATCH TP SCH (09:37)
[2022-07-26] MEDS ORDERED: COLCHICINE 0.6 MG CAP PO ONE ×2 (13:03→15:30)
[2022-07-26] MEDS: LIDOCAINE PATCH REMOVAL MC SCH ×2 (21:56)
[2022-07-26] MEDS: ROSUVASTATIN CA 10 MG TABLET PO SCH (21:56)
[2022-07-27] MEDS: LEVOTHYROXINE NA 50 MCG TABLET (FP) PO SCH (06:22)
[2022-07-27] MEDS: SPIRONOLACTONE 25 MG TABLET PO SCH (09:41)
[2022-07-27] MEDS: APIXABAN 2.5 MG TABLET PO SCH (09:42)
[2022-07-27] MEDS: hydrALAZINE HCL 25 MG TABLET (FP) PO SCH (09:42)
[2022-07-27] MEDS: LIDOCAINE 5% TOPICAL PATCH TP SCH (09:43)
[2022-07-27] MEDS ORDERED: COLCHICINE 0.6 MG CAPSULE PO SCH (10:00)
[2022-07-27 10:54] VITALS: BP 117/67; PULSE 74; RESP 17; TEMP 98.3
== END 2022-07-27 12:48 | disposition home health service (06) | DRG 563 ==
LOC: JER 23:45 → JERBED 07-19 04:16 → J6S 07-19 08:46
PROVIDERS: ADMIT Family Medicine; ATTEND Internal Medicine
DX: S42.295A Other nondisplaced fracture of upper end of left humerus, initial encounter for closed fracture (principal); E78.5 Hyperlipidemia, unspecified; I48.91 Unspecified atrial fibrillation; E00-E89 Endocrine, nutritional and metabolic diseases; E03.9 Hypothyroidism, unspecified; M10.9 Gout, unspecified; F41.9 Anxiety disorder, unspecified; I12.9 Hypertensive chronic kidney disease with stage 1 through stage 4 chronic kidney disease, or unspecified chronic kidney disease; N18.9 Chronic kidney disease, unspecified; W01.0XXA Fall on same level from slipping, tripping and stumbling without subsequent striking against object, initial encounter; Y92.098 Other place in other non-institutional residence as the place of occurrence of the external cause; Z86.73 Personal history of transient ischemic attack (TIA), and cerebral infarction without residual deficits
CPT/HCPCS: 0241U-QW; 36415; 70450-TC; 71045-TC-FY; 72125-TC; 73030-TC-LT-FY; 80048; 80053; 81003; 83735; 84484; 85025; 85027; 85610; 85730; 86850; 86900; 86901; 87086; 93005; 93010; 97116-GP; 97162-GP; 99285-25

== ENCOUNTER 2023-09-06 21:01 | Emergency (ER) | payer OTHER, MEDICARE ==
[2023-09-06 21:19] VITALS: TEMP 98.2; BMI 24.0
[2023-09-06] MEDS ORDERED: LACTATED RINGERS SOLUTION 1000 ML INFUS.BAG IV ONE (22:29)
[2023-09-06] MEDS ORDERED: morphine CARPU-JECT 4 MG/1 ML DISP.SYRIN IVPUSH ONE (22:29)
[2023-09-06] MEDS ORDERED: ACETAMINOPHEN 1000 MG/100 ML BAG IVPB ONE (22:32)
[2023-09-06] MEDS ORDERED: ACETAMINOPHEN INJECTION 100 ML IVPB ONE (23:09)
[2023-09-06 23:14] LABS: EPI CELLS 25 /uL (0-25.1); HYALINE CASTS 1 /uL (0-3.1); PH,URINE 5.5 (5.0-8.0); URINE APPEARANCE CLEAR; URINE BACTERIA 81 /uL (0-1359); URINE BILIRUBIN NEGATIVE (NEGATIVE); URINE COLOR YELLOW; URINE GLUCOSE (UA) NEGATIVE (NEGATIVE); URINE KETONE TRACE (NEGATIVE); URINE LEUK ESTERASE NEGATIVE (NEGATIVE); URINE NITRITE NEGATIVE (NEGATIVE); URINE PROTEIN 2+ (NEGATIVE); URINE RBC 21 /uL (0-23.9); URINE UROBILINOGEN 0.2 mg/dL (0.2-1.0); URINE WBC 13 /uL (0-25.8)
[2023-09-06 23:14] LABS: BASO % 0.3 % (0-2.0); EOS % 0.1 % (0-4.5); HEMATOCRIT 41.8 % (32.4-45.2); HEMOGLOBIN 13.7 GM/dL (10.7-15.3); LYMPH % 9.2 % (8-40); MCHC 32.9 g/dl (32.0-36.0); MEAN CELL VOLUME 94.2 fl (80-96); MEAN PLT VOLUME 8.6 fl (7.5-11.1); MONO % 6.9 % (3.8-10.2); NEUT % 83.5 % (42.8-82.8); PLATELET COUNT 214 10^3/uL (134-434); RBC 4.44 M/mm3 (3.60-5.2); WHITE BLOOD COUNT 13.4 K/mm3 (4.0-10.0)
[2023-09-06 23:34] LABS: POTASSIUM 4.7 mmol/L (3.5-5.1)
[2023-09-06 23:36] LABS: ALBUMIN 3.7 g/dl (3.4-5.0); CALCIUM 10.6 mg/dL (8.5-10.1)
[2023-09-06 23:37] LABS: BLOOD UREA NITROGEN 30.7 mg/dL (7-18); MAGNESIUM 1.6 mg/dL (1.8-2.4)
[2023-09-06 23:39] LABS: CREATININE 1.7 mg/dL (0.55-1.3)
[2023-09-06 23:41] LABS: BILIRUBIN,TOTAL 0.9 mg/dL (0.2-1); TOT PROT 7.4 g/dl (6.4-8.2)
[2023-09-07] MEDS ORDERED: MAGNESIUM SULF 50% (8.12 MEQ/2 ML-1 GM VIAL) IVPB ONE (00:12)
[2023-09-07] MEDS ORDERED: ENALAPRIL MALEATE 10 MG TABLET PO ONE (00:15)
[2023-09-07] MEDS ORDERED: METOPROLOL TARTRATE 50 MG TABLET (FP) PO ONE (00:16)
[2023-09-07] MEDS ORDERED: MAGNESIUM SULFATE IN WATER 2 GM/50 ML IVPB IVPB ONE (00:22)
[2023-09-07] MEDS ORDERED: ENALAPRIL MALEATE 5 MG TABLET ONE (00:22)
[2023-09-07 03:41] VITALS: BP 170/82; PULSE 75; RESP 19
== END 2023-09-07 04:25 | disposition home or self-care (01) ==
LOC: JER 21:01
PROC: 3E033NZ Introduction of Analgesics, Hypnotics, Sedatives into Peripheral Vein, Percutaneous Approach (ICD-10-PCS; principal; 2023-09-06)
PROC: 3E033GC Introduction of Other Therapeutic Substance into Peripheral Vein, Percutaneous Approach (ICD-10-PCS; 2023-09-07)
DX: R10.31 Right lower quadrant pain (principal); K59.00 Constipation, unspecified; K57.30 Diverticulosis of large intestine without perforation or abscess without bleeding; Z20.822 Contact with and (suspected) exposure to COVID-19
CPT/HCPCS: 0241U-QW; 71045-TC-FY; 74176-TC; 80053; 81003; 83690; 83735; 84484; 85025; 87086; 93005; 93010; 99285-25